=== PATIENT | female | born 1965 | race Caucasian/White ===

== ENCOUNTER 2018-04-16 15:33 | Inpatient (IN) | payer OTHER, SELFPAY | END 2018-04-20 15:10 | disposition home or self-care (01) | DRG 440 | PROVIDERS: Admitting Provider Internal Medicine; Emergency Provider Emergency Medicine; PCP Internal Medicine; Visit Provider Family Medicine | DX: K85.90 Acute pancreatitis without necrosis or infection, unspecified (principal); N30.20 Other chronic cystitis without hematuria; F41.9 Anxiety disorder, unspecified; E03.9 Hypothyroidism, unspecified; M06.9 Rheumatoid arthritis, unspecified; E78.5 Hyperlipidemia, unspecified; F10.10 Alcohol abuse, uncomplicated; I10 Essential (primary) hypertension | CPT/HCPCS: 36415; 74177; 76705; 80048; 80053; 80061; 81001; 83690; 83735; 84439; 84443; 84480; 84484; 85025; 85027; 85610; 85730; 87086; 93005; 96361; 96374; 96375; 99285; A9270; C9113; J0131; J0696; J2060; J2405; J3010; J7030; J7120; Q9967 ==

== ENCOUNTER 2019-05-17 09:16 | Outpatient (CLI) | payer OTHER, SELFPAY ==
--- NOTE | ~2019-05-17 | MM_ITS ---
EXAMINATION: MM screening elizabeth BI w eulalia HISTORY: Screening mammogram TECHNIQUE: Craniocaudal and mediolateral oblique 3-D tomosynthesis images were obtained and synthetic 2-D images were generated. CAD analysis was submitted and interpreted. COMPARISON: No prior mammogram is available for comparison at this institution. BREAST PARENCHYMAL COMPOSITION: There are scattered areas of fibroglandular density. FINDINGS: There is no evidence of suspicious mass, calcification, or architectural distortion to sugg est malignancy in either breast. There has been no suspicious interval change. IMPRESSION: 1. No mammographic evidence of malignancy. 2. Recommend routine screening mammography in one year. BI-RADS Category 1: Negative Reviewed, dictated and finalized at location A.
== END 2019-05-17 09:17 | disposition home or self-care (01) ==
PROVIDERS: PCP Internal Medicine; Visit Provider Internal Medicine
DX: Z12.31 Encounter for screening mammogram for malignant neoplasm of breast (principal)
CPT/HCPCS: 77063; 77067

== ENCOUNTER 2019-11-21 14:58 | Outpatient (CLI) | payer OTHER, SELFPAY ==
--- NOTE | ~2019-11-21 | XR_ITS ---
EXAMINATION: XR foot LT standing 2V INDICATION: Rheumatoid arthritis without rheumatoid factor TECHNIQUE: Two views of the left foot are obtained. COMPARISON: None available FINDINGS: There is no fracture, dislocation, or subluxation. The bones, soft tissues, and joint space s are normal. No erosions are identified. A plantar calcaneal enthesophyte is noted. IMPRESSION: 1. No acute osseous abnormality. Reviewed, dictated and finalized at location A.
--- NOTE | ~2019-11-21 | XR_ITS ---
EXAMINATION: XR hand BI arthritis min 3V DATE: 11/21/2019 15:38 INDICATION: Unspecified osteoarthritis, unspecified site TECHNIQUE: Posteroanterior, lateral, and oblique views of the left and of the right hands as well as a ballcatchers view of both hands were obtained. COMPARISON: None. FINDINGS: There is no fracture, dislocation, or subluxation. Subtle ulnar sided cortical erosions are seen at the bases of the left second, third, and fourth proximal phalanges. Subtle ulnar sided corti corrine erosions are also seen at the bases of the right third and fourth proximal phalanges. The soft ti ssues are unremarkable. IMPRESSION: 1. Subtle ulnar-sided erosions at the bases of the second through fourth left proximal phalanges and the third and fourth right proximal phalanges which can be seen in the setting of rheumatoid arthriti s. Reviewed, dictated and finalized at location A. IMPRESSION: 1. Subtle ulnar-sided erosions at the bases of the second through fourth left p roximal phalanges and the third and fourth right proximal phalanges which can b e seen in the setting of rheumatoid arthritis.
--- NOTE | ~2019-11-21 | XR_ITS ---
XR shoulder LT min 2V 11/21/2019 15:36 Indication: Rheumatoid arthritis Procedure: 5 views left shoulder Comparison: No prior studies for comparison. Findings: No fracture or traumatic malalignment. No significant joint space narrowing. No erosive tiana nges. No significant soft tissue abnormality. No radiopaque foreign bodies. Impression: 1: No significant bone or joint abnormality. Reviewed, dictated and finalized at location A. Impression: 1: No significant bone or joint abnormality.
--- NOTE | ~2019-11-21 | XR_ITS ---
EXAMINATION: XR foot RT standing 2V INDICATION: Rheumatoid arthritis without rheumatoid factor TECHNIQUE: Two views of the right foot are obtained. COMPARISON: None available FINDINGS: There is no fracture, dislocation, or subluxation. The bones, soft tissues, and joint space s are normal. No erosions are identified. A plantar calcaneal enthesophyte is noted. IMPRESSION: 1. No acute osseous abnormality. Reviewed, dictated and finalized at location A.
== END 2019-11-21 14:59 | disposition home or self-care (01) ==
PROVIDERS: PCP Internal Medicine; Visit Provider Internal Medicine
DX: M06.09 Rheumatoid arthritis without rheumatoid factor, multiple sites (principal); M19.90 Unspecified osteoarthritis, unspecified site
CPT/HCPCS: 73030; 73130; 73620

== ENCOUNTER 2020-03-18 12:41 | Outpatient (CLI) | payer OTHER, SELFPAY ==
--- NOTE | ~2020-03-18 | DEXA_ITS ---
Bone Density Report Name: Izabella Mendoza Age: 54 Sex: Female Ethnicity: White Date of : 1965 Indication: postmenopausal; prior fracture; cancer; asthma or emphysema; hysterectomy; Referring Provider: DAVID SYED Study: Bone densitometry was performed. Exam Date: March 18, 2020 Accession number: [id number] Bone Density: Region BMD T-score Z-score Classification AP Spine (L1-L4) 1.138 0.8 1.7 Normal Femoral Neck (Left) 0.891 0.4 1.3 Normal Total Hip (Left) 1.118 1.4 2.0 Normal Total Hip Bilateral Avg 1.072 1.0 1.6 Normal Femoral Neck (Right) 0.869 0.2 1.1 Normal Total Hip (Right) 1.025 0.7 1.2 Normal World Health Organization criteria for BMD impression classify patients as: Normal (T-score at or above -1.0), Osteopenia (T-score between -1.0 and -2.5), or Osteoporosis (T-score at or below -2.5). 10-year Fracture Risk: FRAX not reported because: All T-scores for Spine Total, Hip Total, Femoral Neck at or above -1.0 Clinical Information Provided by Patient: Has had a low trauma fracture Has used the following medications: Vitamin D, Calcium Has the following medical conditions: Asthma or Emphysema, Cancer, Hysterectomy Patient maximum height was 65 Menopause Age: 30 No regular weight bearing exercise Does not regularly consume dairy products Onset of menses at age 18 Number of children 2 Impression: The patient has normal bone mass. The patient has risk factors, including: previous fracture. Discussion: BONE DENSITY IS ABOVE THE MINIMUM DESIRABLE LEVEL AT ALL SKELETAL SITES TESTED. This patient?s bone mineral density is above the minimum desirable level (T-score -1.0 or better) at all sites measured. The patient should follow a healthful lifestyle (good nutrition with adequate calcium and vitamin D, and appropriate weight-bearing exercise). Follow-Up: Consider repeating this study in 5 years or sooner if there is some new clinical indication. Reported by: JENNIFER on 03/18/2020 1:01:00 PM. Reviewed, dictated and finalized at location A. [facility]
== END 2020-03-18 12:42 | disposition home or self-care (01) ==
PROVIDERS: PCP Internal Medicine; Visit Provider Internal Medicine
DX: M06.09 Rheumatoid arthritis without rheumatoid factor, multiple sites (principal); Z78.0 Asymptomatic menopausal state
CPT/HCPCS: 77080

== ENCOUNTER 2024-01-24 07:17 | Outpatient (CLI) | payer OTHER, SELFPAY ==
[2024-01-24 07:38] LABS: Hematocrit 39.3 % (37.0-47.0); Mean Corpuscular HGB Conc 33.1 g/dl (32-36); Mean Corpuscular Hemoglobin 30.4 pg (26-34); Mean Platelet Volume 11.9 fl (7.4-10.4); Platelet Count Result 116 k/mm3 (150-375); Red Blood Count 4.27 M/mm3 (4.2-5.4); Red Cell Distribution Width 12.9 % (11.5-14.5); White Blood Count 6.1 K/mm3 (4.5-10.0)
[2024-01-24 08:10] LABS: Alanine Aminotransferase 22 U/L (6-35); Albumin Level 3.8 g/dL (3.5-5.1); Alkaline Phosphatase 87 U/L (38-126); Amylase 73 U/L (30-110); Anion Gap 5 mmol/L (4-12); Aspartate Amino Transferase 26 U/L (14-36); Bilirubin,Total 0.7 mg/dL (0.2-1.3); Blood Urea Nitrogen 15 mg/dL (7-17); Calcium 8.9 mg/dL (8.4-10.2); Carbon Dioxide 29 mmol/L (22-30); Chloride 105 mmol/L (98-107); Estimated Glomerular Filt Rate > 60; Glucose 97 mg/dL (65-110); Lipase 144 U/L (23-300); Potassium 3.4 mmol/L (3.4-5.0); Sodium 139 mmol/L (137-145)
== END 2024-01-24 07:18 | disposition home or self-care (01) ==
PROVIDERS: PCP Internal Medicine; Visit Provider Nurse Practitioner Family
DX: R10.13 Epigastric pain (principal); R11.2 Nausea with vomiting, unspecified; R14.0 Abdominal distension (gaseous); K52.9 Noninfective gastroenteritis and colitis, unspecified
CPT/HCPCS: 36415; 80053; 82150; 82784; 83690; 85027; 86364

== ENCOUNTER 2024-02-04 08:28 | Outpatient (CLI) | payer OTHER, SELFPAY ==
--- NOTE | ~2024-02-04 | NM_ITS ---
EXAM: NM gastric emptying study DATE: 02/04/2024 13:12 INDICATION: Abdominal distention. Nausea and vomiting. TECHNIQUE: A gastric emptying study was performed using the methodology of Izzy DISLA, et al. J Nucl Med 2007; 48:568-572. The patient was given a meal consisting of 2 scrambled eggs labeled with 1 mCi Tc-99m sulfur colloid, 2 slices of toast, two packages of jam, and approximately 120 mL of water. Si multaneous anterior and posterior 1-min images of the abdomen were obtained with the patient supine a t multiple time points over a total period of 4 hours. The geometric mean of anterior and posterior v iews was determined, and the percentage retention was calculated for each time point. COMPARISON: CT abdomen and pelvis 04/16/2018 FINDINGS: The patient vomited before the 1 hour time point. Gastric retention of the radiotracer-labe led meal was 14%, 11%, and 3% at the 1-hour, 2-hour, and 4-hour time points, respectively. With this technique, apparent rapid gastric emptying is suggested by <30% gastric retention at 1 hour. Delayed gastric emptying is defined by gastric retention of >90% at 1 hour, >60% retention at 2 hours, or >10 % retention at 4 hours. IMPRESSION: 1. Nondiagnostic evaluation of gastric emptying due to vomiting before the 1 hour time point. Reviewed, dictated and finalized at location A. 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 Nondiagnostic evaluation of gastric emptying due to vomiting before the 1 ho ur time point.
== END 2024-02-04 08:29 | disposition home or self-care (01) ==
LOC: ANHIMG 08:29
PROVIDERS: PCP Internal Medicine; Visit Provider Nurse Practitioner Family
DX: R14.0 Abdominal distension (gaseous) (principal); R10.13 Epigastric pain; R11.2 Nausea with vomiting, unspecified
CPT/HCPCS: 78264; A9541

== ENCOUNTER 2024-02-09 07:41 | Outpatient (CLI) | payer OTHER, SELFPAY ==
--- NOTE | ~2024-02-09 | CT_ITS ---
Non-contrast CT scan of the Abdomen and Pelvis Clinical indication: Epigastric pain Technique: 2.5 mm axial scans were obtained through the abdomen and pelvis without intravenous or or al contrast. Dose reduction technique was used on this scan by utilizing automated exposure control a nd iterative reconstruction technique. The dose-length product (DLP) was 1432.46 mGy-cm. Findings: Images through the lung bases reveal no abnormalities. There are small bilateral nonobstructing renal stones. No ureteral stone or hydronephrosis on either side. The liver, spleen, pancreas, and left adrenal gland appear normal. Small low-density right adrenal no dule is compatible with adenoma. Cholecystectomy clips are present. There is no aortic aneurysm. There is no evidence of bowel obstruction. Images through the pelvis were performed. There is no evidence of ascites or lymphadenopathy. Urinary bladder unremarkable. Status post hysterectomy. No pelvic mass. Impression: Small bilateral nonobstructing renal stones. Small right adrenal adenoma. Reviewed, dictated and finalized at [facility]. 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 Small right adrenal adenoma.
== END 2024-02-09 07:42 | disposition home or self-care (01) ==
PROVIDERS: PCP Internal Medicine; Visit Provider Nurse Practitioner Family
DX: R10.13 Epigastric pain (principal); R11.2 Nausea with vomiting, unspecified; R14.0 Abdominal distension (gaseous); D35.01 Benign neoplasm of right adrenal gland; N20.0 Calculus of kidney
CPT/HCPCS: 74176

== ENCOUNTER 2024-02-21 09:07 | Outpatient (CLI) | payer OTHER, SELFPAY ==
[2024-02-21 09:32] LABS: Hematocrit 42.6 % (37.0-47.0); Hemoglobin 13.6 g/dL (12.0-15.0); Mean Corpuscular HGB Conc 31.9 g/dl (32-36); Mean Corpuscular Hemoglobin 29.1 pg (26-34); Mean Corpuscular Volume 91.2 fl (80-100); Mean Platelet Volume 11.2 fl (7.4-10.4); Platelet Count Result 147 k/mm3 (150-375); Red Blood Count 4.67 M/mm3 (4.2-5.4); Red Cell Distribution Width 12.7 % (11.5-14.5); White Blood Count 5.7 K/mm3 (4.5-10.0)
[2024-02-21 09:43] LABS: Alanine Aminotransferase 28 U/L (6-35); Albumin Level 3.9 g/dL (3.5-5.1); Alkaline Phosphatase 92 U/L (38-126); Anion Gap 0 mmol/L (4-12); Aspartate Amino Transferase 28 U/L (14-36); Bilirubin,Total 0.7 mg/dL (0.2-1.3); Blood Urea Nitrogen 20 mg/dL (7-17); Calcium 9.2 mg/dL (8.4-10.2); Carbon Dioxide 35 mmol/L (22-30); Chloride 104 mmol/L (98-107); Estimated Glomerular Filt Rate > 60; Glucose 105 mg/dL (65-110); Potassium 3.4 mmol/L (3.4-5.0); Sodium 139 mmol/L (137-145)
== END 2024-02-21 09:08 | disposition home or self-care (01) ==
LOC: ANHLAB 09:08
PROVIDERS: PCP Internal Medicine; Visit Provider Nurse Practitioner Family
DX: D69.6 Thrombocytopenia, unspecified (principal)
CPT/HCPCS: 36415; 80053; 85027

== ENCOUNTER 2024-08-03 08:48 | Outpatient (CLI) | payer OTHER, SELFPAY ==
--- OUTSIDE RECORDS SUMMARY | 2024-08-03 09:07 | XMS_ITS | Clinical Summary ---
Author Organization [facility] Address [address] [place] [address] Care Team Providers Care Furniture Sales Consultant Name Role Phone Navin Ibrahim MD Primary Care Provider [phone] Source Comments [facility],non-university hospital Affiliates and Associated Physician Practices is amultiple site organization consisting of ambulatory clinics and hospital sitesin [place], [place], [place] and [place]. This disclosure is being madepursuant to the Care Everywhere program and may not contain all information available regarding this patient. 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 Gender Identity Not on file Sexual Orientation Not on file Plan of Treatment Health Maintenance Due Date Last Done Comments COLOGUARD (AGES 45-75) - COL ON CA SCREENING 1965 COLON MONITORING 1965 COLONOSCOPY - COLON CA SCREENING 1967 CT COLONOGRAPHY - COLON CA SCREENING 1965 Colorectal Cancer Screening 1965 FIT - COLON CA SCREENING 1967 FLEX SIG - COLON CA SCREENING 1965 LIPID TESTING 1965 MAMMOGRAM 1965 HIV SCREENING 09/29/1982 HEPATITIS C SCREENING 09/25/1985 DTAP/TDAP/TD VACCINES (1 - Tdap) 09/29/1986 HEPATITIS B VACCINE (1 of 3 - 19+ 3-dose series) 09/29/1986 PNEUMOCOCCAL VACCINE 50+ (1 of 1 - PCV) 09/29/2017 ZOSTER VACCINE (1 of 2) 09/29/2017 COVID-19 VACCINE (1 - 2024-2 5 season) 2023 DEPRESSION SCREENING 03/01/2024 INFLUENZA VACCINE (Season Ended) 2024 HIB VACCINE Aged Out No longer eligi ble based on patient's age to complete this topic HPV VACCINE Aged Out No longer eligi ble based on patient's age to complete this topic MENINGOCOCCAL (Group B) VACC INE SHARED DECISION-MAKING Aged Out No longer eligibl e based on patient's age to complete this topic MENINGOCOCCAL GROUPS A/C/Y/W VACCINE Aged Out No longer eligible b ased on patient's age to complete this topic Insurance Care Teams Furniture Sales Consultant Relationship Specialty Start Date End Date Navin Ibrahim MD [address] [facility] [address] [place] [address] PCP - General Internal Medicine 11/12/14
--- OUTSIDE RECORDS SUMMARY | 2024-08-03 09:07 | XMS_ITS | Continuity of Care Document ---
Author Organization [facility] Address [address] [place] [address] [place] [address] Phone Care Team Providers Care Gold Letterer Name Role Phone Marko Rosen Unavailable Unavailable Procedures Procedure Date Visual Field Examination(s) Eye Exam, New Patient Refraction Advance Directives Directive Yes / No Effective Date File Name No Information Encounters Encounter Description Practice Location Reason(s) For Visit Diagnoses Date Provider Providers Copied on Encounter [facility], [address] [place] [address] [address], [place], [place], [id number], tel:[phone] [facility] No Information Andi-0 3-201 0 Silas Lovehil. [address] [place] [address], [facility], [place]. tel:[phone] Referring Provider: Marko west, [address] [place] [address], [facility]. tel:[phone] [facility], [address] [place] [address] [address], [place], [place], [id number], tel:[phone] [facility] No Information Andi-0 1-201 0 Silas Marko. [address] [place] [address], [facility], [place]. tel:[phone] Referring Provider: Eugenio Moody, [facility] [address], [place], [place], [facility]. tel:[phone] Family History Family Member Type Diagnosis Age At Onset No Information Payers Payer name Insurance type Covered constitution party ID Mirna preciado(s) [facility] CI [id number] Social History Type Description Quantity Date Captured Comments Sex Female Smoking Status No Information Chief Complaint And Reason For Visit No Information Reason For Referral Reason For Referral No Information History Of Present Illness Encounter Date Complaint History Of Prese nt Illness No Information Functional Status Date Functional Assessmen t No Information Instructions Date Instruction Additional Infor mation No Information Assessments Type Assessment Date No Information Patient Care Teams Name Effective Dates (start - stop) Status Members No Information
--- OUTSIDE RECORDS SUMMARY | 2024-08-03 09:08 | XMS_ITS | Referral Summary ---
Author Organization [facility] Address [address] [place] [address] Care Team Providers Care Surface Water Technician Name Role Phone Navin Ibrahim MD Primary Care Provider Cesar Dumont MD Unavailable Allergies Active Allergy Reactions Criticality Noted Date Comments Acetaminophen Bupropion Other (See comments),Palpitations Medium Reaction: TACHYCARDIA, , Reaction: Heart Palpitations, Hydrocodone Hydroxychloroquine Nausea only,Vomiting Reaction: nausea, vomiting, Medications lisinopril-hyd roCHLOROthiazi de (PRINZIDE,ZEST ORETIC) 10-12.5 mg per tablet take 1 tablet by oral route every day 30 0 4 Active fluticasone (FLONASE) 50 mcg/actuation nasal spray spray 2 spray by intranasal route 2 times every day in each nostril 30 spray 0 4 Active oxyCODONE (ROXICODONE) 10 mg tabletIndicati ons:Pain 5 mg. 0 8 Active lamoTRIgine (LaMICtal) 100 mg tablet Take 100 mg by mouth daily. Active levothyroxine sodium (TIROSINT) 112 mcg capsule Take 112 mcg by mouth daily. Active Orencia ClickJect 125 mg/mL auto-injector INJECT 125MG SUBCUTANEOUSLY WEEKLY 4 mL 1 0 Active Active Problems Problem Noted Date Diagnosed Date Pain of right heel 08/08/2018 Assessment & Plan (06/20/2019 1:19 PM CDT): Patient notes pain in her right heel that radiates into her ankle with weight-bearing. Pcp gave medrol dose jordon for plantar fasciitis but patient denied benefit. Patient defered x-ray and referral to podiatry at previous visit. Notes improvement with supportive footwear. Assessment & Plan (01/30/2019 12:16 PM SHEET METAL HELPER): Patient notes pain in her right heel that radiates into her ankle with weight-bearing. Pcp gave medrol dose jordon for plantar fasciitis but patient denied benefit. Patient defered x-ray and referral to podiatry at previous visit. Notes improvement with supportive footwear. Assessment & Plan (11/07/2018 2:45 PM CDT): Patient notes pain in her right heel that radiates into her ankle with weight-bearing. Pcp gave medrol dose jordon for plantar fasciitis but patient denied benefit. Patient defers x-ray at this time. Defers referral to podiatry. Assessment & Plan (08/08/2018 10:48 AM CDT): Patient notes pain in her right heel that radiates into her ankle with weight-bearing. Patient defers x-ray at this time and would like to discuss it further with her pcp. Cervical radiculopathy 08/08/2018 Overview (06/20/2019): Xray cervical spine (01/30/19): mild degenerative endplate OA, mild disc space narrowing C6-7. L-spine (01/30/19): normal Assessment & Plan (06/20/2019 1:43 PM CDT): Notes right sided neck pain for the past 6 months that radiates into her right shoulder with neck rotation. Denies any injury. Given flexeril x7 days per pcp with some benefit. C-spine x-ray (01/30/19) revealed mild degenerative OA with mild disc space narrowing at C6-7. Notes some improvement since last visit. Could always consider PT in the future. Assessment & Plan (01/30/2019 12:17 PM SHEET METAL HELPER): Notes right sided neck pain for the past 6 months that radiates into her right shoulder with neck rotation. Denies any injury. Given flexeril x7 days per pcp with some benefit. Will get x-ray today. May need to consider PT, however patient defers at this time. Assessment & Plan (11/07/2018 2:44 PM CDT): Notes right sided neck pain for the past 3 months that radiates into her right shoulder with neck rotation. Denies any injury. Likely that she has a pinched nerve. Patient defers x-ray or PT at this time. Given flexeril x7 days per pcp with some benefit. Will continue to monitor. Assessment & Plan (08/08/2018 10:51 AM CDT): Notes right sided neck pain for the past 2 weeks that radiates into her right shoulder with neck rotation. Denies any injury. Likely that she has a pinched nerve. Patient defers x-ray or PT at this time. Will continue to monitor. medical terminologist current use of therapeutic drug 2018 Overview (06/22/2019): Quantiferon negative: 05/2019 Hepatitis negative: 06/2015 CXR negative: 04/2016 Assessment & Plan (06/20/2019 1:43 PM CDT): Quantiferon negative: 07/2018, recheck today. Hepatitis negative: 06/2015 CXR negative: 04/2016 leflunomide no benefit SSZ caused depression/SI MTX offered no benefit. Humira and enbrel offered no benefit and had injection site reactions. HCQ caused N/V. AZA exacerbated pancreatitis Hx COPD - 1 flare in last 3 years and symptoms better since stop smoking. Will follow closely on orencia Assessment & Plan (01/30/2019 12:16 PM SHEET METAL HELPER): Quantiferon negative: 07/2018 Hepatitis negative: 06/2015 CXR negative: 04/2016 leflunomide no benefit SSZ caused depression/SI MTX offered no benefit. Humira and enbrel offered no benefit and had injection site reactions. HCQ caused N/V. AZA exacerbated pancreatitis Hx COPD - 1 flare in last 3 years and symptoms better since stop smoking. Will follow closely on orencia Assessment & Plan (11/07/2018 2:49 PM CDT): Quantiferon negative: 07/2018 Hepatitis negative: 06/2015 CXR negative: 04/2016 leflunomide no benefit SSZ caused depression/SI MTX offered no benefit. Humira and enbrel offered no benefit and had injection site reactions. HCQ caused N/V. AZA exacerbated pancreatitis Hx COPD - 1 flare in last 3 years and symptoms better since stop smoking. Will follow closely on orencia Assessment & Plan (08/08/2018 10:35 AM CDT): Quantiferon negative: 06/2017, recheck today. Hepatitis negative: 06/2015 CXR negative: 04/2016 Recurrent UTI 04/11/2018 Assessment & Plan (06/20/2019 1:42 PM CDT): History of chronic recurrent UTIs, however unlikely that this was caused by orenica. Could always consider referral to urogenital specialist if symptoms recur. Assessment & Plan (01/30/2019 12:15 PM SHEET METAL HELPER): History of chronic recurrent UTIs, however unlikely that this was caused by orenica. Denies any urinary symptoms today. Could always consider referral to urogenital specialist if symptoms recur. Assessment & Plan (11/07/2018 2:45 PM CDT): History of chronic recurrent UTIs, however unlikely that this was caused by orenica. Denies any urinary symptoms today. Could always consider referral to urogenital specialist if symptoms recur. Assessment & Plan (08/08/2018 10:37 AM CDT): History of chronic recurrent UTIs, however unlikely that this was caused by orenica. Denies any urinary symptoms today. Could always consider referral to urogenital specialist if symptoms recur. Assessment & Plan (05/09/2018 10:42 AM CDT): History of chronic recurrent UTIs. Denies any urinary symptoms today. Discussed having patient see a urologist to evaluate for any urogenital abnormalities that could be causing her recurrent UTIs, however patient defers at this time. Assessment & Plan (04/11/2018 11:33 AM SHEET METAL HELPER): Patient reports chronic recurrent UTIs despite multiple rounds of antibiotics. This most recent UTI has required 3 different antibiotics which the patient just finished. Denies any urinary symptoms today. Will order a UA to further evaluate for UTI and if negative will have patient restart her Orencia 125mg SQ weekly. Discussed having patient see a urologist to evaluate for any urogenital abnormalities that could be causing her recurrent UTIs, however patient defers at this time. Rheumatoid arthritis of [facility] sites with negative rheumatoid factor 09/24/2016 Overview (05/09/2018): Diag per Dr. Shukla with pain and swelling of hands Xray hands reveal degenertive changes. Xray feet reveal calcaneal spurs. US R hand and wrist revealed mild inflammatory changes (07/2015). Vectra 39 (04/2015) Vectra 46 (09/2016) Symptoms mainly over bilat hands (MCP, PIP joints) with R>L. Had felt great on orencia although had been stopped due to UTIs which have since resolved. Is noted UTIs really did not improve off orencia until she was treated with appropriate antibiotic. Off orencia, pt having worsened pain, swelling stiffness over hands. orencia 125 mg subcut weekly leflunomide no benefit SSZ caused depression/SI MTX offered no benefit. Humira and enbrel offered no benefit and had injection site reactions. HCQ caused N/V. AZA exacerbated pancreatitis Has COPD although only 1 flare in last 3 years and symptoms better since stop smoking. Will follow closely on orencia Cannot consider RA study - not on stable oral DMARD Assessment & Plan (06/20/2019 1:41 PM CDT): Moderate cdai. No obvious synovitis with few tender joints noted on exam today. Notes acute onset of right medial epicondyle pain. Suggest elbow strap as symptoms are usually self-limiting. Continue Orencia 125mg SQ weekly. Routine labs today. Follow up in 3 months. Sooner if needed. Assessment & Plan (01/30/2019 12:15 PM SHEET METAL HELPER): Moderate cdai. No obvious synovitis with multiple tender joints noted on exam today. Biggest complaint is low back and neck pain. Will get x-rays of these joints and may consider PT. Continue Orencia 125mg SQ weekly. Routine labs today. Follow up in 3 months. Sooner if needed. Assessment & Plan (11/07/2018 2:46 PM CDT): High cdai. Notes recent increase in joint pain. Switched to orencia clickjet from the syringe and notes it is easier to give herself. Several swollen and tender joints noted on exam today. Continue Orencia 125mg SQ weekly. Routine labs today. Follow up in 3 months. Sooner if needed. Assessment & Plan (08/08/2018 10:47 AM CDT): Moderate cdai. No obvious synovitis, however some tender joints on peripheral exam today. Feels well with orencia and has been able to continue exercising regularly. Reports difficulty giving self-injections with orencia syringes, so will request the auto-injector pen. Will continue orencia 125mg SQ weekly. Routine labs today. Follow up in 3 months. Sooner if needed. Assessment & Plan (05/09/2018 10:41 AM CDT): Moderate cdai. Stopped azathioprine after last visit due to exacerbation of pancreatitis. Restarted orencia 2 weeks ago. Notes improvement of joints since last visit and has started exercising routinely which has improved her stability and she is no longer using a walker. Started using CBD oil. Swelling with tenderness mostly in the right hand today. Has recently been having pain in the right thumb and is tender along the first compartment suggesting a tendonitis. Continue orencia 125mg SQ weekly. Routine labs today. Follow up in 3 months. Sooner if needed. Assessment & Plan (04/11/2018 11:24 AM SHEET METAL HELPER): High cdai. Multiple swollen and tender joints on exam today. Started azathioprine 50mg daily last visit and noted some improvement of right wrist pain and swelling. Also switched to using a walker from a cane which has also helped her wrist pain. Has been on orencia SQ for the past month due to recurrent UTIs. Has finished most recent course of antibiotics. Continue azathioprine 50mg daily. Will order routine labs as well as a UA to evaluate for UTI. If UTI cleared, then can restart orencia SQ. Previous LFTs were significantly elevated, will recheck today and if normalized will increase azathioprine 50mg BID. Discussed with patient avoiding tylenol and alcohol at this time as they can affect liver function. Follow up in 4 weeks. Sooner if needed. Assessment & Plan (03/10/2018 9:48 AM SHEET METAL HELPER): She has been having increased pain and stiffness in her hands and wrists with the right greater than left. She had been off her Orencia for 3 weeks last month due to a UTI and has restarted this and has had 2 doses since restarting. She does state that being off the orencia has worsen her joint complaints although she has been having issues prior to this as well. She does have some synovitis and tenderness over the wrists as well as tenderness throughout the right MCP and PIP joints. She does feel the orencia has helped more than anything although her disease activity still remains high. Will initiate azathioprine 50 mg daily. Continue Orencia 125 mg subcutaneous weekly. Obtain labs as below. Follow-up in 4 months. Assessment & Plan (12/06/2017 10:46 AM CDT): She has been having increased pain and swelling in her hands, wrists, feet, and ankles as she has been off the orencia for the last 4 weeks due to a flare-up of her diverticulitis which has essentially resolved per her report. She does have some synovitis and tenderness over several joints on exam today. Will resume Orencia 125 mg subcutaneous weekly if her labs are okay and her white blood cell count is not significantly elevated. Due to her disease burden will administer triamcinolone 100 mg IM injection today. Will obtain labs as below. Follow-up in 3 months. Assessment & Plan (09/07/2017 11:17 AM CDT): She is doing better since resuming the Orencia which helps greatly for 4 days after dose although she begins to have increased pain in her hands and knees for the remaining days leading up to her next dose. She is on the leflunomide although she does not feel this is offering any benefit and wants to discontinue this. She does feel she is doing well enough with the orencia despite it not being as effective the entire week. She has no active synovitis on exam although does have some tenderness over several MCP and PIP joints. I did discuss with her switching the orencia to another biologic versus enrolling her in a drug trial for rheumatoid arthritis. She wants to defer switching the orencia at this time as she feels it is helping well enough although if symptoms progress she reports she may be interested in a drug trial. Will continue Orencia 125 mg subcutaneous weekly. Will discontinue the leflunomide at her request. If symptoms progress off the leflunomide will restart this. Recent labs were unremarkable. Follow-up in 3 months. Assessment & Plan (07/05/2017 11:10 AM CDT): Had been doing well although stopped her orencia and leflunomide >2 weeks ago due to diverticulitis which has since resolved and she is s/p antibiotics. Since off meds has had increased pain in hands, feet and legs weak requiring use of cane. She feels she does well enough on orencia and leflunomide. Pt did restart leflunomide 1 week ago but yet to restart orencia. Has no synovitis on exam and tender in several joints. Will restart orencia 125 mg subcut weekly, leflunomide 20 mg daily. Labs as below. f/u 2 months. Assessment & Plan (05/03/2017 12:31 PM SHEET METAL HELPER): Has been off orencia and leflunomide >2 months due to recurrent sinus infections. Also unable to tolerate SSZ as prescribed last visit due to depression with SI . Does have synovitis and quite a bit of tenderness over several joints on exam today. Pt reports recently completing antibiotics for sinus infection and states the recurrence of these has not changed off orencia. I suspect she would likely do ok restarting the orencia as her RA is poorly controlled now and she still is having sinus infections despite off meds. She does report her joints were much better on the orencia and I believe the benefit outweighs the risk as she is still getting sinus infections. Will have her restart orencia 125 mg subcut weekly, leflunomide 20 mg daily. Due to her disease burden will give triamcinolone 100 mg IM today. Labs as below. Pt may benefit from ENT referral. F/u 2 months. Assessment & Plan (01/25/2017 10:29 AM SHEET METAL HELPER): Still with synovitis over pip joints and pain and stiffness over mcp, pip joints. Pt does feel the orencia works well although is less effective ~3-4 days after her injection. Otherwise is on leflunomide 20 mg daily. Recent Vectra 46 revealing high disease activity. Will add SSZ 500 mg bid for additional managament of her RA . Cont orencia 125 mg subcut weekly, leflunomide 20 mg daily. Labs as below. F/u 1 month. Assessment & Plan (10/23/2016 2:40 PM CDT): CDAI 34: High disease activity Had been doing fairly well with orencia and leflunomide although pt has been off orencia for last 4 weeks due to recurrent sinus infection. Is feeling better now however in regards to this. Has increased pain mainly in knees, ankles as well as hands, wrists. Has synovitis over MCP, PIP joints, wrists, ankles on exam today. Will obtain labs as below including Vectra Da. Restart orencia 125 mg subcut weekly. Cont leflunomide 20 mg daily. F/u 3 months Primary osteoarthritis involving multiple joints 09/24/2016 Overview (06/07/2019): Worse in knees and spine. Pt follows with pain management. Trying to get medical marijuana card Xray cervical spine (01/30/19): mild degenerative endplate OA, mild disc space narrowing C6-7. L-spine (01/30/19): normal Assessment & Plan (06/20/2019 1:19 PM CDT): Chronic pain in bilateral knees as well as the lumbar spine. Follows with pain management. Has been routinely exercising and improving her stability and no longer requires a walker. Patient has deferred physical therapy in the past. Encouraged continuing routine exercise. Assessment & Plan (01/30/2019 12:16 PM SHEET METAL HELPER): Chronic pain in bilateral knees as well as the lumbar spine. Follows with pain management. Has been routinely exercising and improving her stability and no longer requires a walker. Patient has deferred physical therapy in the past. Encouraged continuing routine exercise. Assessment & Plan (11/07/2018 2:45 PM CDT): Chronic pain in bilateral knees as well as the lumbar spine. Follows with pain management. Has been routinely exercising and improving her stability and no longer requires a walker. Patient has deferred physical therapy in the past. Encouraged continuing routine exercise. Assessment & Plan (08/08/2018 10:35 AM CDT): Chronic pain in bilateral knees as well as the lumbar spine. Follows with pain management. Has been routinely exercising and improving her stability and no longer requires a walker. Patient has deferred physical therapy in the past. Encouraged continuing routine exercise. Assessment & Plan (05/09/2018 10:39 AM CDT): Chronic pain in bilateral knees as well as the lumbar spine. Has been routinely exercising and improving her stability and no longer requires a walker. Patient has deferred physical therapy in the past. Encouraged continuing routine exercise. Assessment & Plan (04/11/2018 11:28 AM SHEET METAL HELPER): Chronic pain in bilateral knees as well as lumbar spine. Previously reported unsteadiness while walking with cane, however has since switched to using a walker which has improved her right wrist pain and swelling also. Patient has deferred physical therapy in the past; however if symptoms worsen, may reconsider formal physical therapy. Continue to follow-up with pain management. Assessment & Plan (03/10/2018 9:51 AM SHEET METAL HELPER): She is having ongoing pain in the bilateral knees with the right worse than left as well as throughout her lumbar spine. She also reports unsteadiness of her feet which she has had some falls and had been walking with a cane although this was bothering her right wrist so she had stopped this. She does follow with Pain Management and is trying to get medicinal marijuana. She was also recently placed on a TENS unit for her spinal complaints. I did discuss with her referral to physical therapy for her unsteadiness as well as her knee and back pain although she wants to defer as she does state that she is to start exercising at a local gym with a certified personal trainer in the near future. If her symptoms progress she may reconsider formal physical therapy. Continue to follow-up Pain Management. Assessment & Plan (12/06/2017 10:47 AM CDT): This mainly involves the bilateral knees and her low back. Symptoms are worse with activity. This remains stable per her report and she does follow with Pain Management. Assessment & Plan (09/07/2017 11:18 AM CDT): Symptoms are worse in the bilateral knees and her spine. She is following with pain management who is trying to taper off the oxycodone in anticipation of her getting her medical marijuana card. Assessment & Plan (07/05/2017 9:42 AM CDT): Mainly in knees and spine. Follows with pain management. Symptoms stable. Assessment & Plan (05/03/2017 11:53 AM SHEET METAL HELPER): Symptoms worse in spine and knees. Follows with pain management. Assessment & Plan (01/25/2017 10:26 AM SHEET METAL HELPER): Symptoms worse in bilat knees and spine. Follows with pain management. Assessment & Plan (10/23/2016 2:39 PM CDT): Mainly in bilat knees and L-spine. Follows with pain management. Is trying to get medical marijuana card. Sleep apnea 07/15/2013 Overview (06/05/2016): OT [facility] SLEEP APNEA Asthma 07/15/2013 Overview (06/05/2016): ASTHMA NOS Disorder of intervertebral disc 10/17/2012 Overview (06/05/2016): Lumbar disc disease Fibrositis 05/13/2012 Overview (06/04/2016): Fibromyalgia Adiposity 05/13/2012 Overview (06/04/2016): Obesity Chronic obstructive pulmonary disease 05/13/2012 Overview (06/05/2016): COPD (chronic obstructive pulmonary disease) Hypothyroidism 03/01/2009 Overview (06/04/2016): HYPOTHYROIDISM NOS Myopathy 03/01/2009 Overview (06/05/2016): MYALGIA AND MYOSITIS NOS Social History Tobacco Use Types Packs/Day Years Used Date Smoking Tobacco: Former Smokeless Tobacco: Never Comments:Smoking History Pac ks/day: 1.5 Packs Alcohol Use Standard Drinks/Week Comments Yes 0 (1 standard drink = 0.6 oz pur e alcohol) Comments Unknown Sex and Gender Information Value Date Recorded Sex Assigned at Not on file Legal Sex Female 8:08 AM SHEET METAL HELPER Gender Identity Not on file Sexual Orientation Not on file Last Filed Vital Signs Vital Sign Reading Time Taken Comments Blood Pressure 138/82 06/20/2019 1:39 PM CDT Pulse 78 01/30/2019 10:08 AM SHEET METAL HELPER Temperature 36.6 C (97.8 F) 06/20/2019 1:39 PM CDT Respiratory Rate - - Oxygen Saturation - - Inhaled Oxygen Concentration - - Weight 103.9 kg (229 lb) 06/20/2019 1:39 PM CDT Height 165.1 cm (5' 5) 01/30/2019 10:08 AM SHEET METAL HELPER Body Mass Index 38.11 01/30/2019 10:08 AM SHEET METAL HELPER Plan of Treatment Not on file Insurance CHO[employer] PLUS Care Teams Surface Water Technician Relationship Specialty Start Date End Date Navin Ibrahim MD PCP - General 05/29/16 Cesar Dumont MD [address] [address] Rheumatology 01/25/17
--- OUTSIDE RECORDS SUMMARY | 2024-08-03 09:08 | XMS_ITS | CONTINUITY OF CARE DOCUMENT ---
Author Name [email or web address] Address Unknown Organization [facility] Address [address] [address] [place] [address] Phone [phone] Care Team Providers Care Functional Skills Tutor Name Role Phone Stephanie Diaz MD Unavailable Navin Ibrahim MD Unavailable [phone] Navin Ibrahim MD Unavailable [phone] INSURANCE PROVIDERS Payer name Policy type / Coverage type [employer] party ID [facility] [employer] [id number]
--- OUTSIDE RECORDS SUMMARY | 2024-08-03 09:08 | XMS_ITS | Encounter Summary ---
Author Organization [facility] Address [address] [place] [address] Phone Care Team Providers Care Public Area Attendant Name Role Phone Navin Ibrahim MD Primary Care Provider [phone] Cesar Dumont MD Unavailable Encounter Details Date Type Department Care Team (Late st Contact Info) Description 05/20/2017 Orders Only [facility] ProviderKentrell MD [address] [phone] Social History Tobacco Use Types Packs/Day Years Used Date Smoking Tobacco: Former Smokeless Tobacco: Never Comments:Smoking History Pac ks/day: 1.5 Packs Alcohol Use Standard Drinks/Week Comments Yes 0 (1 standard drink = 0.6 oz pur e alcohol) Comments Unknown Sex and Gender Information Value Date Recorded Sex Assigned at Not on file 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 Historical Provider LAB BLOOD ORDERABLES Starr l Result documented in this encounter Visit Diagnoses Not on filedocumented in this encounter Additional Health Concerns Infection Onset Date Last Indicated Resolved Time Tuberculosis Comment:Germ watcher auto flagging. Specimen: BLOOD Site: 03/30/2016 03/30/2016 09/07/2023 10:06 P M CDT documented as of this encounter Care Teams Public Area Attendant Relationship Specialty Start Date End Date Navin Ibrahim MD PCP - General 05/29/16 Cesar Dumont MD [address] [address] Rheumatology 01/25/17 documented as of this encounter
--- OUTSIDE RECORDS SUMMARY | 2024-08-03 09:08 | XMS_ITS | Encounter Summary ---
Author Organization [facility] Address [address] [place] [address] Phone Care Team Providers Care Elementary Math Tutor Name Role Phone Navin Ibrahim MD Primary Care Provider [phone] Cesar Dumont MD Unavailable [phone] Encounter Details Date Type Department Care Team (Late st Contact Info) Description 07/05/2017 Orders Only [facility] ProviderKentrell MD [address] [phone] Social History Tobacco Use Types Packs/Day Years Used Date Smoking Tobacco: Former Smokeless Tobacco: Never Comments:Smoking History Pac ks/day: 1.5 Packs Alcohol Use Standard Drinks/Week Comments Yes 0 (1 standard drink = 0.6 oz pur e alcohol) Comments Unknown Sex and Gender Information Value Date Recorded Sex Assigned at Not on file 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 Historical Provider LAB BLOOD ORDERABLES Starr l Result documented in this encounter Visit Diagnoses Not on filedocumented in this encounter Additional Health Concerns Infection Onset Date Last Indicated Resolved Time Tuberculosis Comment:Germ watcher auto flagging. Specimen: BLOOD Site: 03/30/2016 03/30/2016 09/07/2023 10:06 P M CDT documented as of this encounter Care Teams Elementary Math Tutor Relationship Specialty Start Date End Date Navin Ibrahim MD PCP - General 05/29/16 Cesar Dumont MD [address] [address] Rheumatology 01/25/17 documented as of this encounter
--- OUTSIDE RECORDS SUMMARY | 2024-08-03 09:08 | XMS_ITS | Data Portability ---
Author Organization [facility] [employer], Main Office Address [address] [place] [address] Care Team Providers Care Process Safety Management Engineer Name Role Phone EKTA NAVARRO Primary Care Provider EKTA NAVARRO Referring Provider Assessment No assessment recorded. Plan of Treatment Reminders Order Date Submit Date Provider Last Modified By Organization Details Last Modified Time Details Appointments Any 15 2024 01:30P M Ekta Navarro MD Not available Not available Not available Lab TSH, serum or plasma 2024 025 [email or web address] [facility], [facility], [address], [place], [address], 08/02/2024 14:08:29 urinalysi s, dipstick 2023 024 [email or web address] [facility] [address], [address] [place], [address], 02/07/2024 13:38:[address] referral - increasin g tremors- seeing psych to discuss meds as well. 2024 025 [email or web address] [facility] [place] Prabhakar Rutledge, [place], [address], 08/02/2024 11:34:36 dermatolo gist referral - Please call patient to schedule. 2024 025 [email or web address] [facility], [address] [place] [address], [place], [address], 05/22/2024 11:26:00 Procedures None recorded. Surgeries None recorded. Imaging None recorded. Medication Orders Cipro 250 mg tablet 2023 024 [email or web address] [facility]/Pharmacy #[id number], [address], [place], [address], 02/28/2024 13:57:32 amlodipin e 10 mg tablet 2023 024 JOIE [facility]/Pharmacy #[id number], [address], [place], [address], 02/03/2024 17:00:51 Patient TargetsNo targets recorded. Patient Instructions Encounter Date Encounter Id Patient Instructions Last Modified By Organization Details Last Modified Time 08/02/2024 [id number] Call Psych to discuss medications and likely side effects. Neurology consult sent at this time. [email or web address] Not available 08/02/2024 11:25:47 Discussed medications side effects vs. Neurological symptoms. will call with lab results. Please have RA send updated recent labs to our office. 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 Referring Physician: Ekta Navarro, Internal Medicine, Encounter Date: 03/13/2024 Neurologist Referral for Benny mor increasing tremors- seeing psych to discuss meds as well. Referring Physician: Mariama Mauricio, Internal Medicine, Encounter Date: 08/02/2024 Results Created Date Observation Date Name Description Value Unit Range Abnormal Flag Note LastModifiedBy Organization Detail LastModifiedTime 12/06/1912/06/2023 urina lysis , dipst ick Leukocytes (reference range: negative sonia/ l) Small Not Available [facility] [address] [place], [address], 12/06/2023 16:49:45 12/06/1912/06/2023 urina lysis , dipst ick Nitrite (reference rage: negative mg/dl) negati ve Not Available [facility] [address] [place], [address], 12/06/2023 16:49:45 12/06/1912/06/2023 urina lysis , dipst ick Urobilinogen (reference range: 0.2-1 mg/dl) 0.2 Not Available [facility] [address] [place], [address], 12/06/2023 16:49:45 12/06/1912/06/2023 urina lysis , dipst ick Protein (reference range: negative mg/dl) Trace Not Available [facility] [address] [place], [address], 12/06/2023 16:49:45 12/06/1912/06/2023 urina lysis , dipst ick pH (reference range: 5-7) 5.5 Not Available [facility] [address] [place], [address], 12/06/2023 16:49:45 12/06/19 24 12/06/2023 urina lysis , dipst ick Blood (reference range: negative Vic/ l) Small Not Available [facility] [address] [place], [address], 12/06/2023 16:49:45 12/06/19 24 12/06/2023 urina lysis , dipst ick Specific [facility] (reference range: 1.005-1.030) 1.015 Not Available [facility] [address] [place], [address], 12/06/2023 16:49:45 12/06/19 24 12/06/2023 urina lysis , dipst ick Ketone (reference range: negative mg/dl) Negati ve Not Available [facility] [address] [place], [address], 12/06/2023 16:49:45 12/06/19 24 12/06/2023 urina lysis , dipst ick Bilirubin (reference range: negative mg/dl) Negati ve Not Available [facility] [address] [place], [address], 12/06/2023 16:49:45 12/06/1912/06/2023 urina lysis , dipst ick Glucose (reference range: negative mg/dl) Negati ve Not Available [facility] [address] [place], [address], 12/06/2023 16:49:45 12/06/19 24 12/06/2023 urina lysis , dipst ick Appearance Cloudy Not Available [facility] [address] [place], [address], 12/06/2023 16:49:45 12/06/19 24 12/06/2023 urina lysis , dipst ick Color Pale Yellow Not Available [facility] [address] [place], [address], 12/06/2023 16:49:45 12/20/19 24 12/20/2023 URINA LYSIS COMPL ETE/I RIS W/RFX color YELLOW Not Available [facility] (Lab) [address] [place], [address], 12/20/2023 19:18:45 12/20/19 24 12/20/2023 URINA LYSIS COMPL ETE/I RIS W/RFX appear EXTRA TURBID abnormal Not Available [facility] (Lab) [address] [place], [address], 12/20/2023 19:18:45 12/20/1912/20/2023 URINA LYSIS COMPL ETE/I RIS W/RFX specific gravity 1.021 1.001- 1.030 Not Available [facility] (Lab) [address] [place], [address], 12/20/2023 19:18:45 12/20/1912/20/2023 URINA LYSIS COMPL ETE/I RIS W/RFX pH 5.5 pH_un its 5.0-9. 0 Not Available [facility] (Lab) [address] [place], [address], 12/20/2023 19:18:45 12/20/1912/20/2023 URINA LYSIS COMPL ETE/I RIS W/RFX leukocytes >/=500 sonia/u L negati ve- abnormal Not Available [facility] (Lab) [address] [place], [address], 12/20/2023 19:18:45 12/20/1912/20/2023 URINA LYSIS COMPL ETE/I RIS W/RFX nitrite NEGATI VE negati ve- Not Available [facility] (Lab) [address] [place], [address], 12/20/2023 19:18:45 12/20/1912/20/2023 URINA LYSIS COMPL ETE/I RIS W/RFX protein 70 mg/dL negati ve- abnormal Not Available [facility] (Lab) [address] [place], [address], 12/20/2023 19:18:45 12/20/1912/20/2023 URINA LYSIS COMPL ETE/I RIS W/RFX glucose NORMAL mg/dL normal - Not Available [facility] (Lab) [address] [place], [address], 12/20/2023 19:18:45 12/20/1912/20/2023 URINA LYSIS COMPL ETE/I RIS W/RFX ketones NEGATI VE mg/dL negati ve- Not Available [facility] (Lab) [address] [place], [address], 12/20/2023 19:18:45 12/20/1912/20/2023 URINA LYSIS COMPL ETE/I RIS W/RFX urobilinogen NORMAL mg/dL normal - Not Available [facility] (Lab) [address] [place], [address], 12/20/2023 19:18:45 12/20/1912/20/2023 URINA LYSIS COMPL ETE/I RIS W/RFX bilirubin NEGATI VE mg/dL negati ve- Not Available [facility] (Lab) [address] [place], [address], 12/20/2023 19:18:45 12/20/1912/20/2023 URINA LYSIS COMPL ETE/I RIS W/RFX blood 0.2 mg/dL negati ve- abnormal Not Available [facility] (Lab) [address] [place], [address], 12/20/2023 19:18:45 12/20/1912/20/2023 URINA LYSIS COMPL ETE/I RIS W/RFX white blood cells 61-100 /i??h pfi?? 0-8 abnormal Not Available [facility] (Lab) [address] [place], [address], 12/20/2023 19:18:45 12/20/1912/20/2023 URINA LYSIS COMPL ETE/I RIS W/RFX red blood cells 11-20 /i??h pfi?? 0-4 abnormal Not Available [facility] (Lab) [address] [place], [address], 12/20/2023 19:18:45 12/20/1912/20/2023 URINA LYSIS COMPL ETE/I RIS W/RFX bacteria MODERA TE abnormal Not Available [facility] (Lab) [address] [place], [address], 12/20/2023 19:18:45 12/20/1912/20/2023 URINA LYSIS COMPL ETE/I RIS W/RFX mucous OCCASI ONAL /i??l pfi?? abnormal Not Available [facility] (Lab) [address] [place], [address], 12/20/2023 19:18:45 12/20/1912/20/2023 URINA LYSIS COMPL ETE/I RIS W/RFX squamous epithelial PACKED FIELD /i??l pfi?? abnormal Not Available [facility] (Lab) [address] [place], [address], 12/20/2023 19:18:45 12/20/1912/20/2023 URINA LYSIS COMPL ETE/I RIS W/RFX calcium oxalate crystal MODERA TE /i??h pfi?? none seen- abnormal Not Available [facility] (Lab) [address] [place], [address], 12/20/2023 19:18:45 12/20/1912/20/2023 URINA LYSIS COMPL ETE/I RIS W/RFX sperm PRESEN T /i??h pfi?? abnormal Not Available [facility] (Lab) [address] [place], [address], 12/20/2023 19:18:45 02/03/20 24 02/03/2024 urina lysis , dipst ick Leukocytes (reference range: negative sonia/ l) Large Not Available [facility] [address] [place], [address], 02/03/2024 16:50:06 02/03/20 24 02/03/2024 urina lysis , dipst ick Nitrite (reference rage: negative mg/dl) positi ve Not Available [facility] [address] [place], [address], 02/03/2024 16:50:06 02/03/20 24 02/03/2024 urina lysis , dipst ick Urobilinogen (reference range: 0.2-1 mg/dl) 0.2 Not Available [facility] [address] [place], [address], 02/03/2024 16:50:06 02/03/20 24 02/03/2024 urina lysis , dipst ick Protein (reference range: negative mg/dl) Modera te Not Available [facility] [address] [place], [address], 02/03/2024 16:50:06 02/03/20 24 02/03/2024 urina lysis , dipst ick pH (reference range: 5-7) 5.5 Not Available [facility] [address] [place], [address], 02/03/2024 16:50:06 02/03/20 24 02/03/2024 urina lysis , dipst ick Blood (reference range: negative Vic/ l) Modera te Not Available [facility] [address] [place], [address], 02/03/2024 16:50:06 02/03/20 24 02/03/2024 urina lysis , dipst ick Specific [facility] (reference range: 1.005-1.030) 1.030 Not Available [facility] [address] [place], [address], 02/03/2024 16:50:06 02/03/20 24 02/03/2024 urina lysis , dipst ick Ketone (reference range: negative mg/dl) Negati ve Not Available [facility] [address] [place], [address], 02/03/2024 16:50:06 02/03/20 24 02/03/2024 urina lysis , dipst ick Bilirubin (reference range: negative mg/dl) Negati ve Not Available [facility] [address] [place], [address], 02/03/2024 16:50:06 02/03/20 24 02/03/2024 urina lysis , dipst ick Glucose (reference range: negative mg/dl) Negati ve Not Available [facility] [address] [place], [address], 02/03/2024 16:50:06 02/03/20 24 02/03/2024 urina lysis , dipst ick Appearance Cloudy Not Available [facility] [address] [place], [address], 02/03/2024 16:50:06 02/03/20 24 02/03/2024 urina lysis , dipst ick Color Dark Yellow Not Available [facility] [address] [place], [address], 02/03/2024 16:50:06 02/09/20 24 02/09/2024 CT, abdom en + pelvi s, w/o contr ast No observ ation record ed. BARCODE Not Available 2023 14:21:15 Result Notes None recorded. Problems Name Problem SNOMED Code Status Onset Date Resolution Date Notes Provider Name and Address Organization Details Recorded Time Injury of ankle 212331979 Completed 202110/13/2021 Not Available [facility] 3 01:15:32 Disorder of trunk 371334412 Completed Not Available [facility] 3 01:15:32 Postoper ative care Completed 202111/06/2021 Not Available [facility] [place] 3 01:15:32 Postoper ative care Completed 202110/17/2021 Not Available [facility] [place] 3 01:15:32 Chronic obstruct pedro pulmonar y disease 53494879 Active 2021 Not Available [facility] 3 16:23:19 Increase d frequenc y of urinatio n 752038894 Completed Not Available [facility] 3 01:15:32 Nausea and vomiting 31859709 Completed Not Available [facility] 3 01:15:33 Abdomina l pain 66230899 Completed Ekta Navarro MD [address] [facility], [place] [address], [place], [address] , [place] - [facility] 3 10:17:19 Screenin g mammogra phy Completed 202110/13/2021 Not Available [facility] 3 01:15:33 Fibromyo sitis 45985684 Completed rheumato logy, on gabapent in Not Available [facility] 3 01:15:33 Ankle pain 354256920 Completed 202110/13/2021 Not Available [facility] 3 01:15:33 Persiste nt cough 727566206 Completed Not Available [facility] [place] 3 01:15:34 Closed fracture of lateral malleolu s 63600935 Completed 202101/19/2022 Not Available [facility] [place] 3 01:15:34 Closed fracture of lateral malleolu s 34055087 Completed 202110/13/2021 Not Available [facility] [place] 3 01:15:34 Depressi ve disorder 86741974 Active Not Available [facility] [place] 3 16:23:20 Sinusiti s 84474424 Completed Not Available [facility] [place] 3 01:15:34 Migraine 24660049 Active Not Available [facility] [place] 3 16:23:20 Superfic ial dehiscen ce of wound 90793616083 106 Completed 202111/06/2021 Not Available [facility] 3 01:15:35 Hypothyr oidism 36052850 Active Not Available [facility] [place] 3 16:23:20 Obesity 048335449 Active Not Available [facility] [place] 3 16:23:20 Pain of hip region 59601555 Completed Not Available [facility] 3 01:15:35 Upper respirat ory infectio n 22057732 Completed Not Available [facility] 3 01:15:36 Hyperlip idemia 87867992 Active 2017 Not Available [facility] [place] 3 16:23:20 Wheezing 79056763 Completed 202101/19/2022 Not Available [facility] 3 01:15:36 Essentia l hyperten esmer 82011016 Active Not Available [facility] 3 16:23:20 Pruritic rash 14046419 Completed 202110/17/2021 Not Available [facility] 3 01:15:37 Urinary tract infectio us disease 31280553 Completed Not Available [facility] 3 01:15:37 Rheumato id arthriti s 27739036 Active Not Available [facility] [place] 3 16:23:20 Rhinitis 17658694 Active Not Available [facility] [place] 3 16:23:20 Smoker 04431510 Active Not Available [facility] [place] 3 16:23:20 Primary fibromya lgia syndrome 54835646 Active Not Available [facility] [place] 3 16:23:20 Vitamin D deficien cy 24931532 Active 2022 Not Available [facility] [place] 3 16:23:19 Polyp of colon 35421731 Active 2022 Not Available [facility] 3 16:23:20 Divertic ulitis 818816814 Active 2022 Not Available [facility] 3 16:23:19 Obstruct pedro sleep apnea syndrome 67061693 Active 2022 Ekta Navarro MD [address], [place], [address] , [employer] - [facility] 4 16:05:07 Bipolar disorder 56147268 Active 2022 Ekta Navarro MD [address], [place], [address] , [employer] - [employer] [facility] 4 16:05:42 Kaykay a user 302068488 Active 2022 Ekta Navarro MD [address], [place], [address] , [employer] - [facility] [employer] 4 16:05:13 Gastroes ophageal reflux disease 331368189 Active 2022 Ekta Navarro MD [address], [place], [address] , [employer] - [employer] [facility] 3 11:48:27 Hypokale ubaldo 15448552 Active 2023 Eloise ho RMA null, [place] [facility] [employer] [facility] 4 12:13:11 Sleep apnea 76423958 Active 2023 Eloise ho RMGigi null, [place] [facility] 4 12:13:11 Severe chronic obstruct pedro pulmonar y disease 012851876 Active 2023 Rose Marie Healy MA null, [place] [facility] 4 16:29:25 Overacti ve urinary bladder 358864229 Active 2023 Ekta Navarro MD [address], [place], [address] , [facility] 4 16:10:29 Thromboc ytopenic disorder 153539352 Active 2023 Ekta Navarro MD [address], [place], [address] , [facility], [facility] 4 08:49:14 Urinary symptoms 541368384 Active 2023 Eloise ho, RMGigi null, [place] - [facility] 4 16:49:40 Urinary symptoms 516525067 Active 2023 Ekta Navarro MD [address], [place], [address] , [facility], [facility] 4 16:52:01 Hiatal hernia 83717706 Active 2023 Ekta Navarro MD [address], [place], [address] , [facility] - [facility] 4 10:40:20 Skin lesion 68180239 Active 2024 Ekta Navarro MD [address], [place], [address] , [facility], [facility] 5 09:09:14 Tremor 10162244 Active 2024 ANN Castro [address], [place], [address] , [facility], [facility] 5 11:07:53 Notes:Medical History: Bipol ar depression Migraine headaches Bilateral tinnitus Rhinitis Mild COPD Early REM onset Obesity with very severe OSAHS, AHI = 64, 07/02/22 Treatment -emergent central apneas Hypothyroidism Mixed hyperlipidemia Hypertension Diverticulosis/Diverticulitis Hemorrhoids PLMD RA on Enbrel and leflunomide Fibromyalgia Procedure History: T&A 1996 Cholecystectomy 2001 Left ankle surgeries 2002, 2004, 2021 Colonoscopy with polypectomy 2014 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 Procedure Notes None recorded. Medical Equipment None Reported. Allergies Allergen ID Allergen Name Allergen Category Reaction Reaction Severity Criticality Documentation Date Start Date Code Code System Note Provider Name and Address Organization Details Recorded Time 2751 Wellbutri n medicatio n Not available Not available Not available 04/29/2022 68642 RxNorm Not Available [facility] 3 01:34:00 2752 Macrobid medicatio n rash Not available Not available 04/29/2022 43352 1 RxNorm Not Available [facility] 3 01:34:00 2753 latex environme nt,medica tion Not available Not available Not available 04/29/2022 32636 91 RxNorm Not Available [facility] 3 01:34:00 2754 Iodinated contrast media (substanc e) medicatio n rash Not available Not available 04/29/2022 62584 2004 SNOMED Not Available [facility] 3 01:34:00 Medications Name Sig Start Date Stop Date Status Note LastModified by Organization Details LastModified Time quetiapin e 25 mg tablet 02/23 completed Not Available Not Available Not Available fluoxetin e 40 mg capsule TAKE 1 CAPSULE BY MOUTH EVERY DAY active Not Available Not Available No t Available cyclobenz aprine 10 mg tablet Take 1 tablet 3 times a day by oral route at bedtime for 7 days. active Not Available Not Available No t Available amoxicill in 500 mg capsule TAKE ONE CAPSULE 3 TIMES A DAY FOR 7 DAYS active Not Available Not Available No t Available prednison e 10 mg tablet TAKE 4 TABS DAILY IN THE MORNING X5 DAYS, THEN 2 TABS DAILY X5 DAYS, THEN 1 TAB DAILY X5 DAYS 12/29 completed Not Available Not Available Not Available gabapenti n 600 mg tablet Take 1 tablet 3 times a day by oral route. 2012 active Not Available Not Available Not Avai lable doxycycli ne hyclate 100 mg capsule TAKE 1 CAPSULE BY MOUTH TWICE DAILY FOR 5 DAYS. 08/02 completed Not Available Not Available Not Available atorvasta tin 20 mg tablet TAKE 1 TABLET BY MOUTH EVERY DAY active Not Available Not Available No t Available sulfasala zine 500 mg tablet TAKE 2 TABLETS BY MOUTH TWICE A DAY AFTER MEALS active Not Available Not Available No t Available nabumeton e 750 mg tablet active Not Available Not Available Not Available albuterol sulfate 2.5 mg/3 mL (0.083 %) solution for nebulizat ion Inhale 3 mL every 3-4 hours by nebuliza tion route as needed. active Not Available Not Available No t Available trazodone 50 mg tablet active Not Available Not Available Not Available atorvasta tin 10 mg tablet TAKE 1 TABLET BY MOUTH EVERY DAY 09/24 completed Not Available Not Available Not Available azithromy wm 250 mg tablet 2 tabs po qd x 1 day then 1 tab po qd x 4 days active Not Available Not Available No t Available sumatript an 100 mg tablet TAKE 1 TABLET BY MOUTH AT ONSET OF HEADACHE , MAY REPEAT IN 2 HOURS, MAX 2 IN 24 HOURS 2024 active Not Available Not Available Not Avai lable ondansetr on HCl 4 mg tablet TAKE 1 TABLET BY MOUTH THREE TIMES A DAY NEEDED 03/16 completed Not Available Not Available Not Available prednison e 20 mg tablet active Not Available Not Available Not Available clonazepa m 0.5 mg tablet Take 1 tablet twice a day by oral route as needed. active Not Available Not Available No t Available prednison e 5 mg tablet active Not Available Not Available Not Available sulfasala zine 500 mg tablet,de layed release 03/25 completed Not Available Not Available Not Available leflunomi de 10 mg tablet 04/16 completed Not Available Not Available Not Available metronida zole 500 mg tablet TAKE 1 TABLET BY MOUTH EVERY 8 HOURS FOR 7 DAYS 10/15 completed Not Available Not Available Not Available azathiopr ine 50 mg tablet TAKE 1 TABLET BY MOUTH EVERY DAY 02/23 completed Not Available Not Available Not Available acetamino phen 300 mg-codein e 30 mg tablet active Not Available Not Available Not Available ciproflox acin 250 mg tablet Take 1 tablet every 12 hours by oral route for 5 days. 12/30 /2024 completed Not Available Not Available Not Available ciproflox acin 500 mg tablet TAKE 1 TABLET BY MOUTH TWICE A DAY FOR 7 DAYS 10/15 completed Not Available Not Available Not Available sulfameth oxazole 800 mg-trimet hoprim 160 mg tablet TAKE 1 TABLET EVERY 12 HOURS FOR 10 DAYS active Not Available Not Available No t Available peg-elect rolyte solution 420 gram oral solution DRINK 1/2 AT 5PM ON 03-09-22 AND OTHER 1/2 AT 5AM ON 03-10-2210/15 completed Not Available Not Available Not Available omeprazol e 40 mg capsule,d elayed release TAKE 1 CAPSULE BY MOUTH EVERY DAY active Not Available Not Available No t Available leflunomi de 20 mg tablet TAKE 1 TABLET BY MOUTH EVERY DAY active Not Available Not Available No t Available tramadol 50 mg tablet Take 1 tablet 3 times a day by oral route. 2012 active Not Available Not Available Not Avai lable quetiapin e 100 mg tablet TAKE 1 TABLET BY MOUTH TWICE A DAY 02/23 completed Not Available Not Available Not Available amitripty line 50 mg tablet active Not Available Not Available No t Available amoxicill in 500 mg tablet Take 1 tablet 3 times a day by oral route for 7 days. active Not Available Not Available No t Available levothyro xine 25 mcg tablet active Not Available Not Available Not Available lamotrigi ne 25 mg tablet Take 1 tablet twice a day by oral route for 30 days. 03/16 completed Not Available Not Available Not Available levothyro xine 75 mcg tablet active Not Available Not Available Not Available nortripty line 25 mg capsule active Not Available Not Available Not Available levothyro xine 100 mcg tablet TAKE 1 TABLET BY MOUTH EVERY DAY 04/01 completed Not Available Not Available Not Available oxycodone -acetamin ophen 5 mg-325 mg tablet 06/16 completed Not Available Not Available Not Available levothyro xine 88 mcg tablet TAKE 1 TABLET BY MOUTH EVERY DAY 10/15 completed Not Available Not Available Not Available alprazola m 0.25 mg tablet active Not Available Not Available Not Available potassium chloride ER 20 mEq tablet,ex tended release(p art/cryst ) TAKE 1 TABLET BY MOUTH EVERY DAY 08/02 completed Not Available Not Available Not Available famotidin e 20 mg tablet TAKE 1 TABLET BY MOUTH 30 MINUTES BEFORE BREAKFAS T AND DINNER FOR UP TO 6 WEEKS active Not Available Not Available No t Available metoclopr amide 5 mg tablet TAKE 1 TABLET BY MOUTH TWICE A DAY BEFORE MEALS X14 DAYS 08/02 completed Not Available Not Available Not Available methotrex ate sodium 2.5 mg tablet active Not Available Not Available Not Available Silvadene 1 % topical cream APPLY A 1/16 INCH (1.5 MM) THICK LAYER TO ENTIRE wound AREA BY TOPICAL ROUTE 2 TIMES PER DAY 06/16 completed Not Available Not Available Not Available oxycodone -acetamin ophen 10 mg-325 mg tablet TAKE 1 TABLET BY MOUTH EVERY 6 HOURS NEEDED FOR PAIN 03/25 completed Not Available Not Available Not Available amlodipin e 10 mg tablet TAKE 1 TABLET BY MOUTH EVERY DAY active Not Available Not Available No t Available prednison e 2.5 mg tablet PLEASE SEE ATTACHED FOR DETAILED DIRECTIO NS 03/26 completed Not Available Not Available Not Available cephalexi n 500 mg capsule active Not Available Not Available Not Available simvastat in 20 mg tablet Take 1 tablet every day by oral route. 10/15 completed Not Available Not Available Not Available triamcino lone acetonide 0.1 % topical ointment RUB IN WELL TWICE A DAY TO RED AREAS ON SKIN UNTIL CLEAR 06/16 completed Not Available Not Available Not Available lisinopri l 10 mg tablet Take 1 tablet every day by oral route. 07/31 completed Not Available Not Available Not Available fluoxetin e 10 mg capsule TAKE 1 CAPSULE BY MOUTH EVERY DAY 11/13 completed Not Available Not Available Not Available gabapenti n 300 mg capsule Take 1 capsule every day by oral route for 90 days. 04/16 completed Not Available Not Available Not Available diclofena c sodium 75 mg tablet,de layed release Take 1 tablet twice a day by oral route. 2012 active Not Available Not Available Not Avai lable folic acid 1 mg tablet active Not Available Not Available Not Available hydroxyzi ne HCl 25 mg tablet Take 1 tablet 3 times a day by oral route. active Not Available Not Available No t Available bisacodyl 5 mg tablet,de layed release TAKE 6 TABLETS BY MOUTH AT 8AM ON 03-09-2210/15 completed Not Available Not Available Not Available Levaquin 500 mg tablet Take 1 tablet every 24 hours by oral route for 7 days. 07/21 completed Not Available Not Available Not Available mirtazapi ne 15 mg tablet 1/2 tab at bed time 05/10 completed Psychiat rist Not Available Not Available Not Available ergocalci ferol (vitamin D2) 1,250 mcg (50,000 unit) capsule TAKE 1 CAPSULE BY MOUTH ONCE WEEKLY 01/03 completed Not Available Not Available Not Available hydroxych loroquine 200 mg tablet TAKE 2 TABLETS BY MOUTH EVERY DAY active Not Available Not Available No t Available lisinopri l 10 mg-hydroc hlorothia zide 12.5 mg tablet TAKE 1 TABLET BY MOUTH EVERY DAY active Not Available Not Available No t Available oxycodone -acetamin ophen 7.5 mg-325 mg tablet active Not Available Not Available Not Available methylpre dnisolone 4 mg tablets in a dose pack TAKE 6 TABLETS ON DAY 1 DIRECTED ON PACKAGE AND DECREASE BY 1 TAB EACH DAY FOR A TOTAL OF 6 DAYS 08/02 completed Not Available Not Available Not Available albuterol sulfate HFA 90 mcg/actua tion aerosol inhaler TAKE 2 PUFFS BY MOUTH EVERY 4 HOURS NEEDED active Not Available Not Available No t Available lisinopri l 40 mg tablet TAKE 1 TABLET BY MOUTH EVERY DAY active Not Available Not Available No t Available ondansetr on 4 mg disintegr ating tablet TAKE 1 TABLET BY MOUTH EVERY 6-8 HOURS NEEDED FOR NAUSEA active Not Available Not Available No t Available fluoxetin e 20 mg capsule TAKE 1 CAPSULE BY MOUTH EVERY DAY 08/02 completed Not Available Not Available Not Available fluticaso ne propionat e 50 mcg/actua tion nasal spray,jacek pension INSTILL 1 SPRAY INTO EACH NOSTRIL DAILY 02/23 completed Not Available Not Available Not Available lamotrigi ne 100 mg tablet TAKE 1 TABLET BY MOUTH TWICE A DAY active Not Available Not Available No t Available naproxen 500 mg tablet TAKE 1 TABLET BY MOUTH TWICE A DAY WITH FOOD 08/18 completed Not Available Not Available Not Available levothyro xine 112 mcg tablet TAKE 1 TABLET BY MOUTH EVERY DAY active Not Available Not Available No t Available amoxicill in 875 mg-potass ium clavulana te 125 mg tablet TAKE 1 TABLET BY MOUTH EVERY 12 HOURS 05/10 completed Not Available Not Available Not Available oxycodone 5 mg tablet TAKE 1 TABLET BY MOUTH EVERY 6 HOURS NEEDED FOR PAIN active Not Available Not Available No t Available escitalop gordy 20 mg tablet TAKE 1 TABLET EVERY DAY 04/16 completed Not Available Not Available Not Available nitrofura ntoin monohydra te/macroc rystals 100 mg capsule TAKE 1 TABLE BY MOUTH EVERY 12 HOURS WITH FOOD 08/18 completed rash after finishin g Not Available Not Available Not Available chlorhexi dine gluconate 0.12 % mouthwash active Not Available Not Available No t Available Enbrel SureClick 50 mg/mL (1 mL) subcutane ous pen injector active Not Available Not Available Not Available oxycodone 10 mg tablet TAKE 1 TABLET BY MOUTH EVERY 4-6 HOURS NEEDED FOR PAIN 11/17 completed Not Available Not Available Not Available levothyro xine 112 mcg capsule take one tab daily 05/06 completed Not Available Not Available Not Available Suprep Bowel Prep Kit 17.5 gram-3.13 gram-1.6 gram oral solution USE DIRECTED active Not Available Not Available No t Available Butrans 10 mcg/hour transderm al patch Apply 1 patch every week by transder m. route for 28 days. active Not Available Not Available No t Available Butrans 5 mcg/hour transderm al patch active Not Available Not Available Not Available Orencia 125 mg/mL subcutane ous syringe 02/23 completed Not Available Not Available Not Available mirabegro n ER 50 mg tablet,ex tended release 24 hr TAKE 1 TABLET BY MOUTH EVERY DAY active Not Available Not Available No t Available Vraylar 4.5 mg capsule TAKE 1 CAPSULE BY MOUTH EVERY DAY 10/21 completed Not Available Not Available Not Available Vraylar 3 mg capsule TAKE 1 CAPSULE BY MOUTH EVERY DAY active Not Available Not Available No t Available Orencia ClickJect 125 mg/mL subcutane ous auto-inje ctor 10/21 completed Not Available Not Available Not Available Ingrezza 2024 active called psych after OV and medicati on was started for tremors- Neuro referral still sent Not Available Not Available Not Available Trelegy Ellipta 100 mcg-62.5 mcg-25 mcg powder for inhalatio n INHALE 1 PUFF BY MOUTH EVERY DAY active Not Available Not Available No t Available Enbrel Mini 50 mg/mL (1 mL) subcutane ous cartridge active Not Available Not Available No t Available Avsola 100 mg intraveno us solution 06/16 completed Not Available Not Available Not Available Breztri Aerospher e 160 mcg-9mcg- 4.8mcg/ac tuation HFA aerosol inhaler TAKE 2 PUFFS BY MOUTH TWICE A DAY 08/18 completed Not Available Not Available Not Available Vitals Date Recorded Body height Body mass index (BMI) Body weight Body temperature Heart rate Oxygen saturation Oxygen saturation in Arterial blood by Pulse oximetry Systolic blood pressure Diastolic blood pressure Provider Name and Address Organization Details Last Updated DateTime 5 165.1 cm 41.1 kg/m2 006471. 32 g 96.8 [degF] 82 /min 98 % 98 % 144 mm[Hg] 84 mm[Hg] PERRY [facility] [employer] 5 08:48:33 Date Recorded Body height Body mass index (BMI) Body weight Body temperature Heart rate Oxygen saturation Oxygen saturation in Arterial blood by Pulse oximetry Systolic blood pressure Diastolic blood pressure Provider Name and Address Organization Details Last Updated DateTime 5 165.1 cm 42.3 kg/m2 065917. 46 g 97.3 [degF] 83 /min 97 % 97 % 144 mm[Hg] 76 mm[Hg] Dara thomas [employer] 5 15:26:55 Date Recorded Body height Body mass index (BMI) Body weight Body temperature Heart rate Respiratory rate Oxygen saturation Oxygen saturation in Arterial blood by Pulse oximetry Systolic blood pressure Diastolic blood pressure Provider Name and Address Organization Details Last Updated DateTime 5 165.1 cm 39.3 kg/m2 264706. 8 g 97.3 [degF] 84 /min 24 /min 96 % 96 % 122 mm[Hg] 78 mm[Hg] Rose Marie Healy MA [employer] 5 10:54:56 Date Recorded Body height Body mass index (BMI) Body weight Body temperature Heart rate Oxygen saturation Oxygen saturation in Arterial blood by Pulse oximetry Systolic blood pressure Diastolic blood pressure Provider Name and Address Organization Details Last Updated DateTime 4 165.1 cm 41.6 kg/m2 342977. 09 g 96.8 [degF] 67 /min 98 % 98 % 160 mm[Hg] 90 mm[Hg] PERRY Cheng [facility] [employer] [facility] 4 10:29:06 Date Recorded Body height Body mass index (BMI) Body weight Body temperature Heart rate Oxygen saturation Oxygen saturation in Arterial blood by Pulse oximetry Systolic blood pressure Diastolic blood pressure Provider Name and Address Organization Details Last Updated DateTime 4 165.1 cm 40.8 kg/m2 882771. 13 g 98 [degF] 77 /min 96 % 96 % 182 mm[Hg] 94 mm[Hg] PERRY Cheng [facility] [employer] [facility] 4 16:37:37 Social History Question Answer Notes LastModified by ServiceBenchizat ion Details LastModified Time Tobacco Smoking Status Former Smoker Not Available [facility] 04/29/2022 00:56:49 Do You Have An Advance Directive? No [id number] Information not available 04/29/2022 What Is Your Level Of Caffeine Consumption? Occasional MIGRATION.[id number] Information not available 04/29/2022 How Much Tobacco Do You Chew? None MIGRATION.72163 [id number] Information not available 04/29/2022 In The 14 Days Before Symptom Onset, Have You Had Close Contact With A Laboratory-confir med COVID-19 While That Case Was Ill? No MIGRATION.[id number] Information not available 04/29/2022 In The 14 Days Before Symptom Onset, Have You Had Close Contact With A Person Who Is Under Investigation For COVID-19 While That Person Was Ill? No MIGRATION.[id number] Information not available 04/29/2022 What Type Of Diet Are You Following? REGULAR MIGRATION.20083 [id number] Information not available 04/29/2022 Which Illicit Or Recreational Drugs Have You Used? Marijuana Information not available 10/15/2022 Do You Have An Electrostatic Air Filter? No Information not available 10/15/2022 Have There Been Any Changes To Your Family Or Social Situation? No MIGRATION.[id number] Information not available 04/29/2022 What Is The Fluoride Status Of Your Home? Unknown MIGRATION.[id number] 60965 Information not available 04/29/2022 Do You Have A Humidifier? Yes Information not available 10/15/2022 Where Do You Live? [place] MIGRATION.01233 [id number] Information not available 04/29/2022 Do You Have A Medical Power Of Tank Systems Maintainer? No MIGRATION.68651 [id number] Information not available 04/29/2022 Do You Have Moisture Problems In Your Home? No Information not available 10/15/2022 What Was The Date Of Your Most Recent Tobacco Screening? 12/01/2022 Information not available 12/01/2022 Have You Ever Been Counseled For Unhealthy Alcohol Use? No MIGRATION.[id number] Information not available 04/29/2022 Do You Have Any Pets? Yes Information not available 10/15/2022 Do You Use Your Seat Belt Or Car Seat Routinely? Yes MIGRATION.[id number] Information not available 04/29/2022 Do You Have Smoke And Carbon Monoxide Detectors In Your Home? Yes MIGRATION.42481 [id number] Information not available 04/29/2022 At What Age Did You Start Smoking Tobacco? 11 MIGRATION.49577 70916 Information not available 04/29/2022 Are You Passively Exposed To Smoke? No MIGRATION.64769 21327 Information not available 04/29/2022 Are There Any Smokers In Your House? No MIGRATION.38853 64092 Information not available 04/29/2022 Do You Use Sunscreen Routinely? Yes MIGRATION.51959 58052 Information not available 04/29/2022 Has Tobacco Cessation Counseling Been Provided? No MIGRATION.06246 82612 Information not available 04/29/2022 Have You Recently Traveled Abroad? No MIGRATION.68579 86449 Information not available 04/29/2022 Do You Have Any Dietary Restrictions? No MIGRATION.77281 38568 Information not available 04/29/2022 Sex: Unknown Functional Status Question Answer Note LastModified by Organizat ion Details LastModified Time Do you use any illicit or recreational drugs? No MIGRATION.512451 6960 Information not available 04/29/2022 Do you or have you ever used any other forms of tobacco or nicotine? No MIGRATION.864687 7110 Information not available 04/29/2022 What is your level of alcohol consumption? Occasional MIGRATION.986615 4058 Information not available 04/29/2022 Do you or have you ever used smokeless tobacco? Never used smokeless tobacco MIGRATION.[id number] 4646 Information not available 04/29/2022 What is your occupation? retired MIGRATION.746682 7917 Information not available 04/29/2022 Do you or have you ever used e-cigarettes or vape? Never used electronic cigarettes MIGRATION.[id number] 3945 Information not available 04/29/2022 What is your exercise level? Occasional MIGRATION.[id number] 8260 Information not available 04/29/2022 Mental Status None recorded. Family History Relationship Description Onset Age of this Age Resolved Age Notes LastModified by Organization Details LastModified Time Father Heart disease [id number] Not available 04/29/2022 01:01:39 Father Essential hypertension [email or web address] Not available 15:12:02 Mother Diabetes mellitus [id number].[id number] Not available 04/29/2022 01:01:39 Paternal Grandmother Heart disease MIGRATION.[id number] Not available 04/29/2022 01:01:39 Paternal Grandmother Malignant neoplastic disease Not available 05/17 15:12:02 Paternal Aunt Malignant neoplastic disease [email or web address] Not available 05/17 15:12:02 Mother Malignant neoplasm of skin [email or web address] Not available 2024 10:58:53 Medical History Condition Response HIGH CHOLESTEROL / HYPERLIPIDEMIA Y DEPRESSION (INCLUDING POST ) Y OBESITY Y OSTEOPOROSIS Y ARTHRITIS Y HYPERTENSION Y CANCER: SPECIFY Y Gynecological HistoryNo gynecological history recorded. Obstetrics History GPAL:G 0 P 0 0 0 0 Past Encounters Encounter ID Performer Location Encounter Start Date Encounter Closed Date Diagnosis/Indication Diagnosis SNOMED-CT Code Diagnosis ICD10 Code Diagnosis Note [id number] MD NACHO Wells[facility] Internal Med [facility] [address] [facility] [address] 05/06/2020 00:00:00 05/06/2020 12:27:19 [id number] Ekta Navarro MD Steven[facility] Internal Med [facility] [address] [facility] [address] 10/21/2020 00:00:00 10/21/2020 15:38:34 [id number] Ekta Navarro MD [facility] Internal Med [address] [facility] [address] 11/13/2020 00:00:00 11/13/2020 16:17:28 [id number] Ekta Navarro MD [facility] Internal Med [address] [place] [address] 04/15/2021 00:00:00 04/15/2021 15:51:21 [id number] Ekta Navarro MD [facility] Internal Med [address] [facility] [address] 07/10/2021 00:00:00 07/10/2021 11:38:54 [id number] Raymon Moyer DPM [facility] [address] [address] 07/14/2021 00:00:00 07/14/2021 11:34:00 [id number] Ekta Navarro MD [facility] Internal Med [address] [facility] [address] 07/31/2021 00:00:00 07/31/2021 15:29:41 [id number] Raymon Moyer DPM [facility] [address] [address] 07/31/2021 00:00:00 07/31/2021 13:23:06 [id number] Ekta Navarro MD [facility] Internal Med [address] [facility] [facility] [address] 08/18/2021 00:00:00 08/18/2021 16:10:21 [id number] Raymon Moyer DPM [facility] [place] [address] [place] [address] 08/21/2021 00:00:00 08/26/2021 12:17:26 [id number] Raymon Moyer DPM [facility] [address] [place] [address] 09/18/2021 00:00:00 09/18/2021 17:01:27 [id number] Ekta Navarro MD [facility] Internal Med [address] [place] [address] 09/23/2021 00:00:00 09/23/2021 13:01:17 [id number] Raymon Moyer DPM [facility] [place] [address] [place] [address] 10/13/2021 00:00:00 10/13/2021 10:22:34 [id number] Raymon Moyer DPM [facility] [place] [address] [place] [address] 10/27/2021 00:00:00 10/27/2021 11:20:52 [id number] Raymon Moyer DPM [facility] [address] [address] 11/04/2021 00:00:00 11/04/2021 13:23:41 [id number] Raymon Moyer DPM [facility] [place] [address] [place] [address] 11/24/2021 00:00:00 11/24/2021 12:33:40 [id number] Ekta Navarro MD [facility] Internal Med [address] [place] [address] 12/29/2021 00:00:00 12/29/2021 15:51:24 [id number] Ekta Navarro MD [facility] Internal Med [address] [place] [address] 01/20/2022 00:00:00 01/20/2022 12:58:36 [id number] Ekta Navarro MD [facility] Internal Med [address] [facility] [place] [address] 06/16/2022 09:57:35 06/16/2022 10:55:07 Fatigue 50122434 R53.83 Sleep alivia ana disturbance 79528704 G47.9 sleep score high, report in the chart, [id number] Ekta Navarro MD [facility] Internal Med [address] [facility] [address] 08/13/2022 14:34:12 08/13/2022 15:20:17 Abdominal pain 98050952 R10.9 most likely diverticul itis, will treat, take dietary precaution s,call if not better, ER if pain gets worse [id number] Ekta Navarro MD S_[facility] Internal Med [address] [facility] [address] 08/20/2022 10:11:52 08/20/2022 10:33:18 Diverticulitis 378136028 K57.92 pain has improved, finish abx, take imodium prn [id number] Ramarkishna Reagan MD [facility] Pulmonolo gy [address] [place] [address] 10/15/2022 15:23:14 10/16/2022 08:08:32 Obstructive sleep apnea syndrome 64071345 G47.33 G47.30 G47.36 G47.[id number] [facility] Internal [facility] [address] [facility] [address] 11/04/2022 15:13:03 11/04/2022 15:53:31 Essential hypertension 77427252 I10 under control Depressive disorder 3548 9007 F32.A stable Bipolar disorder 0303441 4 F31.9 stable Hypothyroidism 04081145 E03.9 under control Migraine 42713151 G43.90 9 meds help Obesity 470932983 E66.9 advised to lose Rheumatoid arthritis 698 00119 M06.9 stable with meds Hypokalemia 35527655 E87 .6 stable Chronic ob structive pulmonary disease 29646974 J44.9 under control Vitamin D deficiency 347 58595 E55.9 on meds Marijuana user 356800129 F12.90 advised to stop Adult heal th examination 294306947 Z00.00 Colonoscop y- 06/11/2014 Mammogram- 02/19 Dexa- 03/2020 Paps not required, DANIEL w/o bso FLU- Does not get COVID- DOES NOT WANT Sleep apnea 35325504 G47 .30 to get titration [id number] Ramakrishna Reagan MD [facility] Pulmonolo gy [place] [address] [facility] [address] [place] [address] 12/01/2022 12:20:50 12/01/2022 14:02:14 Obstructive sleep apnea syndrome 75141481 G47.33 [id number] Ekta Navarro MD [facility] Internal Med [address] [facility] [address] 12/18/2022 11:05:50 12/18/2022 11:57:58 Gastroesophageal reflux disease 139517432 K21.9 could be causing vomiting [id number] Ekta Navarro MD [facility] Internal [address] [place] [address] 03/26/2023 11:50:07 03/26/2023 12:41:02 Essential hypertension 65858667 I10 under control Depressive disorder 3548 9007 F32.A under control Bipolar disorder 5417789 4 F31.9 stable Hypothyroidism 66735191 E03.9 under control Migraine 87961514 G43.90 9 meds help Obesity 808970838 E66.9 advised to lose Rheumatoid arthritis 698 94660 M06.9 stable with meds Hypokalemia 81519812 E87 .6 stable Chronic ob structive pulmonary disease 58466374 J44.9 under control Vitamin D deficiency 347 95811 E55.9 on meds Marijuana user 348017524 F12.90 advised to stop Adult heal th examination 340094806 Z00.00 Colonoscop y- 03/23, nl , next in 10yrs Mammogram- 02/19 Dexa- 03/2020 Paps not required, DANIEL w/o bso FLU- Does not get COVID- DOES NOT WANT Sleep apnea 34805299 G47 .30 can't afford Gastroesop hageal reflux disease 914844243 K21.9 on meds, still gets vomiting [id number] Ekta Navarro MD [facility] Internal Med [address] [place] [address] 04/08/2023 14:34:34 04/08/2023 14:52:26 Essential hypertension 05798454 I10 FOR NOW WATCH, SAME MEDS, RECHECK IN 3 WEEKSMEDS ADJUSTMENT IF NEEDEDBP WAS GOOD RECENTLY [id number] Ekta Navarro MD [facility] Internal Med [address] [facility] [address] 05/14/2023 11:18:38 05/14/2023 11:52:17 Essential hypertension 30426849 I10 getting better, lose weight, watch salt Chronic ob structive pulmonary disease 92444376 J44.9 still with wheezing , try trelegy, sample for a week [id number] Ekta Navarro MD [facility] Internal Med [facility] [address] [facility] [address] 08/19/2023 15:22:17 08/19/2023 16:19:44 Essential hypertension 54143294 I10 under control Depressive disorder 3548 9007 F32.A under control Bipolar disorder 7933023 4 F31.9 stable Hypothyroidism 42566002 E03.9 under control Migraine 14347899 G43.90 9 meds help Obesity 203715791 E66.9 advised to lose Rheumatoid arthritis 698 78957 M06.9 stable with meds Hypokalemia 78541844 E87 .6 stable Chronic ob structive pulmonary disease 77832782 J44.9 under control Vitamin D deficiency 347 71529 E55.9 on meds Marijuana user 726794610 F12.90 advised to stop Adult heal th examination 753013820 Z00.00 Colonoscop y- 03/23, nl , next in [address] [place] [address] gram- 02/19Dexa- 1Pap s not required, DANIEL w/o bsoFLU- Does not getCOVID- DOES NOT WANT Sleep apnea 61646968 G47 .30 can't afford Gastroesop hageal reflux disease 936828353 K21.9 better Screening mammography 24 972940 Z12.31 Overactive urinary bladder 984962023 N32.81 try Myrbetriq 50 mg qd [id number] Ekta Navarro MD [facility] Internal Med [facility] [address] [facility] [address] 12/06/2023 16:05:52 12/06/2023 16:54:32 Urinary symptoms 624183297 R39.9 dip stick noted, drink more water [id number] Ekta Navarro MD [facility] Internal [facility] [address] [place] [address] 12/20/2023 10:12:05 12/20/2023 10:47:17 Hiatal hernia 32825231 K44.9 vomiting is getting worse, to see GI , may need surgery Urinary symptoms 5482664 08 R39.9 dip stick noted, drink more water [id number] Ekta Navarro MD [facility] Internal [facility] [address] [place] [address] 01/04/2024 10:20:15 01/04/2024 10:46:38 Essential hypertension 10053395 I10 was always under control, watch for a month, monitor at home and recheck in a month Depressive disorder 3548 9007 F32.A under control Bipolar disorder 6438971 4 F31.9 stable with meds Hypothyroidism 84771094 E03.9 under control Migraine 06997298 G43.90 9 meds help Obesity 082385805 E66.9 advised to lose Rheumatoid arthritis 698 63610 M06.9 stable with meds Hypokalemia 92245423 E87 .6 stable Chronic ob structive pulmonary disease 72551198 J44.9 under control with meds Vitamin D deficiency 347 84369 E55.9 to take otc Marijuana user [id number] F12.90 advised to stop Adult heal th examination 645447795 Z00.00 Colonoscop y- 03/23, nl , next in 10yrsEGD- 04/07/2023 Sleep Study- 11/26/2022 Mammogram- 09/20/2023 Dexa- ap s not required, DANIEL w/o bsoFLU- Does not getCOVID- DOES NOT WANT Sleep apnea 26874627 G47 .30 can't afford Gastroesop hageal reflux disease 142003688 K21.9 better Overactive urinary bladder 732589886 N32.81 generic Myrbetriq helps [id number] Ekta Navarro MD [facility] Internal Med [facility] [address] [facility] [address] 02/03/2024 16:31:35 02/03/2024 17:05:20 Essential hypertension 53845320 I10 add amlodipine Urinary symptoms 2701802 08 R39.9 dip stick noted, drink more water [id number] Ekta Navarro MD [facility] Internal Med [facility] [address] [facility] [address] 03/13/2024 08:41:08 03/13/2024 09:12:59 Essential hypertension 56106203 I10 getting better with amlodipine Skin lesion 15645564 L98 .9 [id number] Ekta Navarro MD [facility] Internal [facility] [address] [facility] [address] 05/17/2024 15:11:12 05/17/2024 15:56:30 Essential hypertension 49276038 I10 better Depressive disorder 3548 9007 F32.A under control Bipolar disorder 4347822 4 F31.9 stable with meds Hypothyroidism 52574370 E03.9 under control Migraine 66268878 G43.90 9 meds help Obesity 688573701 E66.9 advised to lose, watch diet Rheumatoid arthritis 698 10339 M06.9 stable with meds Hypokalemia 70042430 E87 .6 stable Chronic ob structive pulmonary disease 24305123 J44.9 under control with meds Vitamin D deficiency 347 59240 E55.9 to take otc Adult heal th examination 851109678 Z00.00 Colonoscop y- 03/23, nl , next in 10yrsEGD- 04/07/2023 Sleep Study- 11/26/2022 Mammogram- 09/20/2023 Dexa- ap s not required, DANIEL w/o bsoFLU- Does not getCOVID- DOES NOT WANT Sleep apnea 14622311 G47 .30 can't afford cpap Gastroesop hageal reflux disease 983027249 K21.9 better Overactive urinary bladder 334843034 N32.81 generic Myrbetriq helps [id number] Ekta Navarro MD [facility] Internal Med [facility] [address] [facility] [address] 08/02/2024 10:46:15 08/02/2024 11:34:35 Tremor 61260797 R25.1 Health Concerns Section Related Observation LastModified by Organization Detai ls LastModified Time None Recorded Concern Status LastModified by Organization Details LastModified Time None Recorded Advance Directives Directive N: Payers Encounter Date Sequence Insurance Name Policy Number Policy Joyce Covered Member ID Joyce Member ID Guarantor Name 01/04/2024 1 [facility] [id number] Leeroy Mendoza [id number] Izabella Mendoza 02/03/2024 1 [facility] [id number] Leeroy Mendoza [id number] Izabella Mendoza 03/13/2024 1 [facility] [id number] Leeroy Mendoza [id number] Izabella Mendoza 05/17/2024 1 [facility] [id number] Leeroy Mendoza [id number] Izabella Mendoza 08/02/2024 1 [facility] [id number] Leeroy Mendoza [id number] Izabella Mendoza Notes Date Note Type Note Provider Name and Address Organization Details Recorded Time 4 text/html She is here today for her routine follow up PT [facility] ( [facility] ) Hypertension- High today 166/90, BP WAS ALWAYS HIGHDenies any headache, SOB, chest pain. She has not taken her meds yet this morningMeds- Lisinopril 40mg daily Depression- Meds help, no anxiety, mood is stable, seeing psychMeds- Fluoxetine 20mg daily Bipolar- Sees Sondra Martínez (Psych)Meds- Lamotrigine 100mg BID, Vraylar 3mg daily COPD-inhalers help, no sob or coughMeds- Albuterol Inhaler, Trelegy Ellipta Hyperlipidemia- On meds, labs GOODMeds- Atorvastatin 20mg daily Hypothyroidism- labs goodMeds- Levothyroxine 100mcg daily Migraine- Has not had migraine in a few monthsMeds- Sumatriptan 100mg as needed Obesity- has stayed the same RA- Seen Dr. Montejo, meds helpMeds- Enbrel and Leflunomide 20mg daily EX-Smoker- quit in 1999, smoked 1ppd x 24 yrs, Does not smoke cigarettes, Only Marijuana, Vitamin D def-Meds- not on otc sleep apnea- can't afford cpap GERD- on meds, and better, had EGD, no more vomitingMeds- Omeprazole 40mg daily Overactive bladder- getting worse, has never taken meds Ekta Navarro MD [address], [place], [address], [facility] [employer] [employer] [facility] 01/04/2024 10:44:50 4 text/html Pt is here today for a blood pressure follow up. BP was high, taking meds, no headache or dizzinessno cp or sobToday her b/p is 192/ 108Her machine is 201/95Also C/o urinary issues. Strong Odor and really dark, mild burning Ekta Navarro MD [address], [facility] [address], [place], [address], [facility] [employer] [facility] 02/03/2024 17:04:24 5 text/html Pt is here today for a 1 month follow up checking her blood pressure.Pt states that she still has been getting headachesAmlodipine was added.Today her b/p is 144/84Also has a growth on the left side of her head that recently came up. States that she noticed it about 1 month ago. Keeps getting larger and is tender. No h/o skin cancer in the past. Ekta Navarro MD [address], [place], [address], [facility] [employer] [facility] 03/13/2024 09:10:26 5 text/html pt is here for f/u. She has recently found out she has skin cancer on the left restoration early Apr. On 04/28/24 (was cut off)and will surgical remove the cancerous tissue 05/31/24 (maybe another one but, they will check on on the same day if so.Also found some cancerous tissue on her right forearm that they will freeze on 06/06/24. Hypertension- betteMeds- Lisinopril 40mg daily, Amlodipine 10 mg qd Depression- Meds help, no anxiety, mood is stable, seeing psychMeds- Fluoxetine 20mg daily Bipolar- Sees Sondra Martínez (Psych)Meds- Lamotrigine 100mg BID, Vraylar 3mg daily COPD-inhalers help, no sob or coughMeds- Albuterol Inhaler, Trelegy Ellipta Hyperlipidemia- On meds, labs Meds- Atorvastatin 20mg daily Hypothyroidism- labs good 09/21Meds- Levothyroxine 100mcg daily Migraine- Has not had migraine in a few monthsMeds- Sumatriptan 100mg as needed Obesity- advised to lose RA- Seen Dr. Montejo, meds helpMeds- Enbrel and Leflunomide 20mg daily EX-Smoker- quit in 1999, smoked 1ppd x 24 yrs, Does not smoke cigarettes, Only Marijuana, Vitamin D def-Meds- not on otc sleep apnea- can't afford cpap GERD- on meds, and better, had EGD, no more vomitingMeds- Omeprazole 40mg daily Overactive bladder-on meds helpsMeds- Mirabegron ER 50 mg qd Ekta Navarro MD [id number], [place], [address], [employer] 05/17/2024 15:55:07 5 text/html Patient is 67y/o female who is here to discuss increasing tremors. Patient states that she sees psych regularly as well as rheumatolgoy. She reports that she has been on her medications for a while with no changes. She denies any tongue movements or noticeable facial movements. She denies any changes in walking or speaking or movements with arms. She reports that her tremors have increased the last 3-4 months. lamotringe- adverse effects tremors tremors are different. - pill rolling and foot tapping, no facial or tongue movement's, no fevers, no changes in speaking or cognition Seeing RA- tomorrow- see yasir-ANN Nicole [address], [place], [address], [employer] 08/02/2024 11:27:07 OBGyn Episode No OBEpisode recorded.
--- OUTSIDE RECORDS SUMMARY | 2024-08-03 09:08 | XMS_ITS | Continuity of Care Document ---
Author Organization [place] [facility] [employer] [facility], [facility] Internal [facility] [address] Address [address] [place] [address] Care Team Providers Care Wing Scorer Name Role Phone EKTA IBRAHIM Primary Care Provider EKTA IBRAHIM Referring Provider Assessment No assessment recorded. Plan of Treatment Reminders Order Date Submit Date Provider Last Modified By Organization Details Last Modified Time Details Appointments Any 15 2024 01:30P M Ekta Ibrahim MD Not available Not available Not available Lab TSH, serum or plasma 2024 025 [email or web address] Neuropure [facility], [facility] Yolanda Rutledge, [address], [place], [address], 08/02/2024 14:08:[address] referral - increasin g tremors- seeing psych to discuss meds as well. 2024 025 [email or web address] [facility], Prabhakar Rutledge, [place], [address], 08/02/2024 11:34:36 Procedures None recorded. Surgeries None recorded. Imaging None recorded. Medication Orders None recorded. Patient TargetsNo targets recorded. Patient Instructions Encounter Date Encounter Id Patient Instructions Last Modified By Organization Details Last Modified Time 08/02/2024 [id number] Call Psych to discuss medications and likely side effects. Neurology consult sent at this time. [email or web address] Not available 08/02/2024 11:25:47 Discussed medications side effects vs. Neurological symptoms. will call with lab results. Please have RA send updated recent labs to our office. Not available 08/02/2024 11:26:30 Reason for Referral Neurologist Referral for Benny mor increasing tremors- seeing psych to discuss meds as well. Referring Physician: Mariama Mauricio, Internal Medicine, Encounter Date: 08/02/2024 Problems Name Problem SNOMED Code Status Onset Date Resolution Date Notes Provider Name and Address Organization Details Recorded Time Injury of ankle 837552642 Completed 202110/13/2021 Not Available [facility] 3 01:15:32 Disorder of trunk 418217656 Completed Not Available [facility] 3 01:15:32 Postoper ative care Completed 202111/06/2021 Not Available [facility] 3 01:15:32 Postoper ative care Completed 202110/17/2021 Not Available [facility] 3 01:15:32 Chronic obstruct pedro pulmonar y disease 45257396 Active 2021 Not Available [facility] 3 16:23:19 Increase d frequenc y of urinatio n 586234639 Completed Not Available [facility] 3 01:15:32 Nausea and vomiting 65119016 Completed Not Available [facility] 3 01:15:33 Abdomina l pain 09067827 Completed Ekta Ibrahim MD [address] [facility], [address], [address] , [facility] [employer] [facility] 3 10:17:19 Screenin g mammogra phy Completed 202110/13/2021 Not Available [facility] 3 01:15:33 Fibromyo sitis 37558751 Completed rheumato logy, on gabapent in Not Available [facility] 3 01:15:33 Ankle pain 254230555 Completed 202110/13/2021 Not Available [facility] 3 01:15:33 Persiste nt cough 895522933 Completed Not Available [facility] 3 01:15:34 Closed fracture of lateral malleolu s 98091357 Completed 202101/19/2022 Not Available [facility] 3 01:15:34 Closed fracture of lateral malleolu s 43775021 Completed 202110/13/2021 Not Available [facility] 3 01:15:34 Depressi ve disorder 25260411 Active Not Available [facility] 3 16:23:20 Sinusiti s 53819025 Completed Not Available [facility] 3 01:15:34 Migraine 17637036 Active Not Available [facility] 3 16:23:20 Superfic ial dehiscen ce of wound 79552957685 106 Completed 202111/06/2021 Not Available [facility] 3 01:15:35 Hypothyr oidism 69262298 Active Not Available [facility] 3 16:23:20 Obesity 104183300 Active Not Available [facility] 3 16:23:20 Pain of hip region 62138009 Completed Not Available [facility] 3 01:15:35 Upper respirat ory infectio n 84697738 Completed Not Available [facility] 3 01:15:36 Hyperlip idemia 79534569 Active 2017 Not Available [facility] 3 16:23:20 Wheezing 99003401 Completed 202101/19/2022 Not Available [facility] 3 01:15:36 Essentia l hyperten esmer 42200652 Active Not Available [facility] 3 16:23:20 Pruritic rash 17332636 Completed 202110/17/2021 Not Available [facility] 3 01:15:37 Urinary tract infectio us disease 45252042 Completed Not Available [facility] 3 01:15:37 Rheumato id arthriti s 59719714 Active Not Available [facility] 3 16:23:20 Rhinitis 26017426 Active Not Available [facility] 3 16:23:20 Smoker 30092438 Active Not Available [facility] 3 16:23:20 Primary fibromya lgia syndrome 47131488 Active Not Available [facility] 3 16:23:20 Vitamin D deficien cy 40750895 Active 2022 Not Available [facility] 3 16:23:19 Polyp of colon 08657495 Active 2022 Not Available [facility] 3 16:23:20 Divertic ulitis 159113674 Active 2022 Not Available [facility] 3 16:23:19 Obstruct pedro sleep apnea syndrome 78254762 Active 2022 Ekta Ibrahim MD [address], [address], [place], [address] , [employer] 4 16:05:07 Bipolar disorder 39923177 Active 2022 Ekta Ibrahim MD [address], [address], [place], [address] , [employer] [facility] 4 16:05:42 Marijuan a user 520419951 Active 2022 Ekta Ibrahim MD [address], [address], [place], [address] , [employer] 4 16:05:13 Gastroes ophageal reflux disease 526086415 Active 2022 Ekta Ibrahim MD [address], [address], [place], [address] , [employer] [facility] [employer] 3 11:48:27 Hypokale ubaldo 60715311 Active 2023 PERRY Wolfe null, [employer] [facility] 4 12:13:11 Sleep apnea 57704282 Active 2023 PERRY Wolfe null, [employer] [facility] 4 12:13:11 Severe chronic obstruct pedro pulmonar y disease 866116544 Active 2023 Rose Marie Healy MA null, [employer] [facility] [employer] [facility] 4 16:29:25 Overacti ve urinary bladder 912723926 Active 2023 Ekta Ibrahim MD [address], [address], [place], [address] , [facility] 4 16:10:29 Thromboc ytopenic disorder 426194444 Active 2023 Ekta Ibrahim MD [address], [address], [place], [address] , [place] [facility] 4 08:49:14 Urinary symptoms 735390742 Active 2023 PERRY Wolfe, [place] [facility] 4 16:49:40 Urinary symptoms 387079470 Active 2023 Ekta Ibrahim MD [address], [address], [place], [address] , [facility] 4 16:52:01 Hiatal hernia 18930258 Active 2023 Ekta Ibrahim MD [address], [address], [place], [address] , [facility] 4 10:40:20 Skin lesion 57073404 Active 2024 Ekta Ibrahim MD [address], [address], [place], [address] , [facility] 5 09:09:14 Tremor 83544051 Active 2024 ANN Castro [address], [address], [place], [address] , [facility] 5 11:07:53 Notes:Medical History: Bipol ar depression Migraine headaches Bilateral tinnitus Rhinitis Mild COPD Early REM onset Obesity with very severe OSAHS, AHI = 64, 07/02/22 Treatment -emergent central apneas Hypothyroidism Mixed hyperlipidemia Hypertension Diverticulosis/Diverticulitis Hemorrhoids PLMD RA on Enbrel and leflunomide Fibromyalgia Procedure History: T&A 1996 Cholecystectomy 2001 Left ankle surgeries 2002, 2004, 2021 Colonoscopy with polypectomy 2014 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 Procedures Surgical History Date Name Laterality Status Provider Name and Address Organization Details Recorded Time cholecystectomy completed Not Available [facility] 04/29/2022 01:01:31 Partial hysterectomy completed Not Available [facility] 04/29/2022 01:01:31 Tonsillectomy completed Not Available [facility] 04/29/2022 01:01:31 Genitourinary Surgery completed Not Available [facility] 04/29/2022 01:01:31 Orthopedic Surgery completed Not Available [facility] 04/29/2022 01:01:31 EPIC WILLOW SPECIALIST Procedure completed Not Available [facility] 04/29/2022 01:01:31 Imaging Results None recorded. Procedure Notes None recorded. Medical Equipment None Reported. Allergies Allergen ID Allergen Name Allergen Category Reaction Reaction Severity Criticality Documentation Date Start Date Code Code System Note Provider Name and Address Organization Details Recorded Time 2751 Wellbutri n medicatio n Not available Not available Not available 04/29/2022 82453 RxNorm Not Available [facility] 3 01:34:00 2752 Macrobid medicatio n rash Not available Not available 04/29/2022 23666 1 RxNorm Not Available [facility] 3 01:34:00 2753 latex environme nt,medica tion Not available Not available Not available 04/29/2022 30255 91 RxNorm Not Available [facility] 3 01:34:00 2754 Iodinated contrast media (substanc e) medicatio n rash Not available Not available 04/29/2022 79899 2004 SNOMED Not Available [facility] 3 01:34:00 Medications Name Sig Start Date [...] hours by oral route for 5 days. 02/27 completed Not Available Not Available Not Available [...] Silvadene 1 % topical cream APPLY A /16 INCH (1.5 MM) THICK LAYER TO ENTIRE [...] Updated DateTime 5 165.1 cm 39.3 kg/m2 339091. 8 g 97.3 [degF] 84 /min 24 /min 96 % 96 % 122 mm[Hg] 78 mm[Hg] Rose Marie Healy MA [place] [facility] 5 10:54:56 Social History Question Answer Notes LastModified by Organizat ion Details LastModified Time Tobacco Smoking Status Former [facility]oker Not Available [facility] 04/29/2022 00:56:49 Do You Have An Advance Directive? No MIGRATION.89316 [id number] Information not available 04/29/2022 What Is Your Level Of Caffeine Consumption? Occasional MIGRATION. 98296 Information not available 04/29/2022 How Much Tobacco Do You Chew? None MIGRATION.32206 29247 Information not available 04/29/2022 In The 14 Days Before Symptom Onset, Have You Had Close Contact With A Laboratory-confir med COVID-19 While That Case Was Ill? No MIGRATION.01420 83565 Information not available 04/29/2022 In The 14 Days Before Symptom Onset, Have You Had Close Contact With A Person Who Is Under Investigation For COVID-19 While That Person Was Ill? No MIGRATION.48632 48072 Information not available 04/29/2022 What Type Of Diet Are You Following? REGULAR MIGRATION.99671 48399 Information not available 04/29/2022 Which Illicit Or Recreational Drugs Have You Used? Marijuana Information not available 10/15/2022 Do You Have An Electrostatic Air Filter? No Information not available 10/15/2022 Have There Been Any Changes To Your Family Or Social Situation? No MIGRATION.76070 03340 Information not available 04/29/2022 What Is The Fluoride Status Of Your Home? Unknown MIGRATION.35651 45539 Information not available 04/29/2022 Do You Have A Humidifier? Yes Information not available 10/15/2022 Where Do You Live? [place] MIGRATION.45059 69688 Information not available 04/29/2022 Do You Have A Medical Power Of Key Punch Teacher? No MIGRATION.50071 00398 Information not available 04/29/2022 Do You Have Moisture Problems In Your Home? No Information not available 10/15/2022 What Was The Date Of Your Most Recent Tobacco Screening? 12/01/2022 Information not available 12/01/2022 Have You Ever Been Counseled For Unhealthy Alcohol Use? No MIGRATION.54908 64778 Information not available 04/29/2022 Do You Have Any Pets? Yes Information not available 10/15/2022 Do You Use Your Seat Belt Or Car Seat Routinely? Yes MIGRATION.46701 97535 Information not available 04/29/2022 Do You Have Smoke And Carbon Monoxide Detectors In Your Home? Yes MIGRATION.08175 90370 Information not available 04/29/2022 At What Age Did You Start Smoking Tobacco? 11 MIGRATION.13246 24904 Information not available 04/29/2022 Are You Passively Exposed To Smoke? No MIGRATION.48122 04317 Information not available 04/29/2022 Are There Any Smokers In Your House? No MIGRATION.69104 17832 Information not available 04/29/2022 Do You Use Sunscreen Routinely? Yes MIGRATION.54162 79422 Information not available 04/29/2022 Has Tobacco Cessation Counseling Been Provided? No MIGRATION.52432 34895 Information not available 04/29/2022 Have You Recently Traveled Abroad? No MIGRATION.85884 70427 Information not available 04/29/2022 Do You Have Any Dietary Restrictions? No MIGRATION.58019 17505 Information not available 04/29/2022 Sex: Unknown Functional Status Question Answer Note LastModified by Organizat ion Details LastModified Time Do you use any illicit or recreational drugs? No MIGRATION.821410 3896 Information not available 04/29/2022 Do you or have you ever used any other forms of tobacco or nicotine? No MIGRATION.361919 5572 Information not available 04/29/2022 What is your level of alcohol consumption? Occasional MIGRATION.586519 9067 Information not available 04/29/2022 Do you or have you ever used smokeless tobacco? Never used smokeless tobacco MIGRATION.975524 9662 Information not available 04/29/2022 What is your occupation? retired MIGRATION.038552 7540 Information not available 04/29/2022 Do you or have you ever used e-cigarettes or vape? Never used electronic cigarettes MIGRATION.143780 9949 Information not available 04/29/2022 What is your exercise level? Occasional MIGRATION.155152 1851 Information not available 04/29/2022 Mental Status None recorded. Family History Relationship Description Onset Age of this Age Resolved Age Notes LastModified by Organization Details LastModified Time Father Heart disease MIGRATION.298 [id number] Not available 04/29/2022 01:01:39 Father Essential hypertension [email or web address] Not available 15:12:02 Mother Diabetes mellitus MIGRATION.335 [id number] Not available 04/29/2022 01:01:39 Paternal Grandmother Heart disease MIGRATION.724 [id number] Not available 04/29/2022 01:01:39 Paternal Grandmother Malignant neoplastic disease [email or web address] Not available 05/17 15:12:02 Paternal Aunt Malignant neoplastic disease [email or web address] Not available 05/17 15:12:02 Mother Malignant neoplasm of skin [email or web address] Not available 2024 10:58:53 Medical History Condition Response CANCER: SPECIFY Y ARTHRITIS Y OSTEOPOROSIS Y OBESITY Y DEPRESSION (INCLUDING POST ) Y HYPERTENSION Y HIGH CHOLESTEROL / HYPERLIPIDEMIA Y Gynecological HistoryNo gynecological history recorded. Obstetrics History GPAL:G 0 P 0 0 0 0 Past Encounters Encounter ID Performer Location Encounter Start Date Encounter Closed Date Diagnosis/Indication Diagnosis SNOMED-CT Code Diagnosis ICD10 Code Diagnosis Note [id number] Ekta Ibrahim MD [facility] Internal [address] [place] [address] 08/02/2024 10:46:15 08/02/2024 11:34:35 Tremor 00449677 R25.1 Health Concerns Section Related Observation LastModified by Organization Detai ls LastModified Time None Recorded Concern Status LastModified by Organization Details LastModified Time None Recorded Payers Encounter Date Sequence Insurance Name Policy Number Policy Joyce Covered Member ID Joyce Member ID Guarantor Name 08/02/2024 1 [facility] [id number] Leeroy Junie Reji [id number] Izabella Junie Mendoza Notes Date Note Type Note Provider Name and Address Organization Details Recorded Time 08/02/2024 text/html Patient is 67y/o female who is [...] speaking or cognition Seeing RA- tomorrow- see ROSENDO [facility] [address] [facility], [facility] [address], [place], [address], [facility] 08/02/2024 11:27:07 OBGyn Episode No OBEpisode recorded.
--- OUTSIDE RECORDS SUMMARY | 2024-08-03 09:08 | XMS_ITS | Clinical Summary ---
Author Organization [facility] Address [address] [place] [address] Care Team Providers Care Museum Docent Name Role Phone Navin Ibrahim MD Primary Care Provider Cesar Dumont MD Unavailable [phone] Allergies Active Allergy Reactions Criticality Noted Date [...] footwear. Assessment & Plan (01/30/2019 12:16 PM BRIDGE CARPENTER): Patient notes pain in her right heel [...] future. Assessment & Plan (01/30/2019 12:17 PM BRIDGE CARPENTER): Notes right sided neck pain for the [...] at this time. Will continue to monitor. 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 Assessment & Plan (01/30/2019 12:15 PM BRIDGE CARPENTER): History of chronic recurrent UTIs, however unlikely [...] time. Assessment & Plan (04/11/2018 11:33 AM BRIDGE CARPENTER): Patient reports chronic recurrent UTIs despite multiple [...] defers at this time. Rheumatoid arthritis of [facility] with negative rheumatoid factor 09/24/2016 Overview [...] needed. Assessment & Plan (01/30/2019 12:15 PM BRIDGE CARPENTER): Moderate cdai. No obvious synovitis with multiple [...] needed. Assessment & Plan (04/11/2018 11:24 AM BRIDGE CARPENTER): High cdai. Multiple swollen and tender joints [...] needed. Assessment & Plan (03/10/2018 9:48 AM BRIDGE CARPENTER): She has been having increased pain and [...] months. Assessment & Plan (05/03/2017 12:31 PM BRIDGE CARPENTER): Has been off orencia and leflunomide >2 [...] months. Assessment & Plan (01/25/2017 10:29 AM BRIDGE CARPENTER): Still with synovitis over pip joints and [...] exercise. Assessment & Plan (01/30/2019 12:16 PM BRIDGE CARPENTER): Chronic pain in bilateral knees as well [...] exercise. Assessment & Plan (04/11/2018 11:28 AM BRIDGE CARPENTER): Chronic pain in bilateral knees as well [...] management. Assessment & Plan (03/10/2018 9:51 AM BRIDGE CARPENTER): She is having ongoing pain in the [...] exercising at a local gym with a job trainer in the near future. If her [...] stable. Assessment & Plan (05/03/2017 11:53 AM BRIDGE CARPENTER): Symptoms worse in spine and knees. Follows with pain management. Assessment & Plan (01/25/2017 10:26 AM BRIDGE CARPENTER): Symptoms worse in bilat knees and spine. [...] 03/01/2009 Overview (06/05/2016): MYALGIA AND MYOSITIS NOS Surgical History Surgery Date Site/Laterality Comments OTHER SURGICAL HISTORY L Ankle Fracture: Pin Removed CHOLECYSTECTOMY Cholecystectomy TONSILLECTOMY Tonsillectomy OTHER SURGICAL HISTORY Cancer, cervical: Hysterectomy Medical History Medical History Date Comments Hx Other Medical L Ankle Fractur e; Outcome: resolved Malignant neoplasm of cervix (HCC) Cancer, cervical Family History Medical History Relation Name Comments Other Father Pacemaker; Arthritis Mother arthritis; Diabetes Mother Diabetes mellit us; Car Accident Sister 2 MVA; Cause of D eath: MVA Lupus Sister 2 Lupus erythemat osus; Relation Name Status Comments Father Mother Sister 1 Alive Sister 2 Social History Tobacco Use Types Packs/Day Years Used Date Smoking Tobacco: Former Smokeless Tobacco: Never Comments:Smoking History Pac ks/day: 1.5 Packs Alcohol Use Standard Drinks/Week Comments Yes 0 (1 standard drink = 0.6 oz pur e alcohol) Comments Unknown Sex and Gender Information Value Date Recorded Sex Assigned at Not on file Legal Sex Female 8:08 AM BRIDGE CARPENTER Gender Identity Not on file Sexual Orientation Not on file Obstetrics History Last Filed Vital Signs Vital Sign Reading Time Taken Comments Blood Pressure 138/82 06/20/2019 1:39 PM CDT Pulse 78 01/30/2019 10:08 AM BRIDGE CARPENTER Temperature 36.6 C (97.8 F) 06/20/2019 1:39 PM CDT Respiratory Rate - - Oxygen Saturation - - Inhaled Oxygen Concentration - - Weight 103.9 kg (229 lb) 06/20/2019 1:39 PM CDT Height 165.1 cm (5' 5) 01/30/2019 10:08 AM BRIDGE CARPENTER Body Mass Index 38.11 01/30/2019 10:08 AM BRIDGE CARPENTER Plan of Treatment Not on file Insurance [employer] Care Teams Museum Docent Relationship Specialty Start Date End Date Navin Ibrahim MD PCP - General 05/29/16 Cesar Dumont MD [address] [address] Rheumatology 01/25/17
--- OUTSIDE RECORDS SUMMARY | 2024-08-03 09:08 | XMS_ITS | Patient Health Record ---
Author Organization [facility] Address [address] [place] [address] Care Team Providers Care Employee Development Specialist Name Role Phone Sondra Martínez Primary Care Provider [phone] Allergies Allergen (clinical drug ingredient) Drug/Non Drug Allergy documented on EMR Reaction Allergy Type Onset Date Status Wellbutrin Unknown Drug Allergy Active Reason For Referral No Information Medications Medication SIG (Take, Route, Fr equency, Duration) Notes Start Date End Date Status lamoTRIgine 100 MG TAKE 1 TABLET BY TAMICA TH TWICE A DAY FOR 30 DAYS for 90 days Acti ve PROzac 20 MG 1 capsule Orally Onc e a day for 90 days Active Vraylar 3 MG 1 capsule Orally Onc e a day for 90 days Active Enbrel 25 MG/0.5ML 1 mL Subcutaneous Active Social History Tobacco Use: Social History Observation Description Date Details (start date - stop date) Never Smoker NA - NA Sex Assigned At : Social History Observation Description Sex Assigned At Female Dont use, Tobacco Use/Smoking Question Answer Notes Are you a nonsmoker Tobacco Control (Standard) Question Answer Notes Tobacco use: Nonsmoker Problems Problem Type SNOMED Code ICD Code Onset Dates Problem Status W/U Status Risk Notes Problem [id number] Bipolar 2 disorder (F31.81) Active confirmed Plan Of Treatment No Information Insurance Providers Payer Name Payer Address Payer Phone Subscriber Number Group Number Insured Name Patient Relationship to Insured Coverage Start Date Coverage End Date [facility] [address] [place] [address] [id number] Izabella Mendoza Self - patient is the insured 1 Medical (General) History Medical History History ICD Code Rheumatoid arthritis fibromyalgia Surgical History Surgery Date(Month/Year) Left Ankle surgery 09/2021
[2024-08-03 09:44] LABS: Add Urine Microscopic? YES; Appearance Urine Clear (Clear); Bacteria Urine 1+ /hpf; Bilirubin Urine Negative (Negative); Blood Urine Negative (Negative); Color Urine Yellow (Yellow); Glucose Urine UA Negative (Negative); Ketones Urine Negative (Negative); Leukocyte Esterase Ur 2+ LEU/UL (Negative); Nitrate Urine Negative (Negative); Non Pathogenic Casts 0-2; Protein Urine Negative (Negative); RBC Urine 0-2 /hpf (0-2); Specific Grav Ur 1.016 (1.001-1.035); Squamous Epithelial Cell Urine Moderate /hpf (Few); Urobilinogen Urine 0.2 mg/dL (<2.0); WBC Urine 51-100 /hpf (0-3); pH Urine 6.5 (5.0-9.0)
== END 2024-08-03 08:49 | disposition home or self-care (01) ==
PROVIDERS: PCP Internal Medicine; Visit Provider Internal Medicine
DX: M06.9 Rheumatoid arthritis, unspecified (principal)
CPT/HCPCS: 36415; 81001

== ENCOUNTER 2024-08-04 09:13 | Outpatient (CLI) | payer OTHER, SELFPAY ==
--- OUTSIDE RECORDS SUMMARY | 2024-08-04 09:19 | XMS_ITS | Clinical Summary ---
Author Organization [facility] Address [address] [place] [address] Care Team Providers Care Roundhouse Supervisor Name Role Phone Navin Ibrahim MD Primary Care Provider [phone] Source Comments [facility],non-[facility] Affiliates and Associated Physician Practices is amultiple site organization consisting of ambulatory clinics and hospital sitesin [place], [place], [place] and [place]. This disclosure is being madepursuant to the Care Everywhere program and may not contain all information available regarding this patient. 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
--- OUTSIDE RECORDS SUMMARY | 2024-08-04 09:20 | XMS_ITS | CONTINUITY OF CARE DOCUMENT ---
Author Name [email or web address] Address Unknown Organization [facility] Address [address] [place] [address] Phone [phone] Care Team Providers Care Cake Froster Name Role Phone Stephanie Diaz MD Unavailable [phone] Navin Ibrahim MD Unavailable Navin Ibrahim MD Unavailable [phone] INSURANCE PROVIDERS Payer name Policy type / Coverage type Hall red republican ID [facility] [employer] insurance [employer] [id number]
--- OUTSIDE RECORDS SUMMARY | 2024-08-04 09:20 | XMS_ITS | Data Portability ---
Author Organization [facility], Main Office Address [address] [place] [address] Care Team Providers Care Control Director Name Role Phone EKTA NAVARRO Primary Care Provider EKTA NAVARRO Referring Provider [phone] Assessment No assessment recorded. Plan of Treatment Reminders Order Date Submit Date Provider Last Modified By Organization Details Last Modified Time Details Appointments Any 15 2024 01:30P M Ekta Navarro MD Not available Not available Not available Lab TSH, serum or plasma 2024 025 [email or web address] [employer] [facility], [address], [place], [address], 08/02/2024 14:08:29 urinalysi s, dipstick 2023 024 [email or web address] [facility] [address], [address] [place], [address], 02/07/2024 13:38:[address] referral - increasin g tremors- seeing psych to discuss meds as well. Please call patient to schedule an appointme nt. Thank you. 2024 025 [email or web address] [facility] [address] [place] [address] [place], [address], 08/03/2024 13:11:45 dermatolo gist referral - Please call patient to schedule. 2024 025 [email or web address] [facility], [address] [place] [address], [address], 05/22/2024 11:26:00 Procedures None recorded. Surgeries None recorded. Imaging None recorded. Medication Orders Cipro 250 mg tablet 2023 024 [email or web address] [id number], [address], [place], [address], 02/28/2024 13:57:32 amlodipin e 10 mg tablet 2023 024 JOIE [id number], [address], [place], [address], 02/03/2024 17:00:51 Patient TargetsNo targets recorded. Patient Instructions Encounter Date Encounter Id Patient Instructions Last Modified By Organization Details Last Modified Time 08/02/2024 [id number] Call Psych to discuss medications and likely side effects. Neurology consult sent at this time. [email or web address] Not available 08/02/2024 11:25:47 Discussed medications side effects vs. Neurological symptoms. will call with lab results. Please have RA send updated recent labs to our office. [email or web address] Not available 08/02/2024 11:26:30 Reason for Referral [employer] Referral for S kin lesion Please call patient to schedule. Referring Physician: Ekta Navarro, Internal Medicine, Encounter Date: 03/13/2024 Neurologist Referral for Benny mor increasing tremors- seeing psych to discuss meds as well. Please call patient to schedule an appointment. Thank you. Referring Physician: Mariama Mauricio, Internal Medicine, Encounter Date: 08/02/2024 Results Created Date Observation Date Name Description Value Unit Range Abnormal Flag Note LastModifiedBy Organization Detail LastModifiedTime 12/06/1912/06/2023 urina lysis , dipst ick Leukocytes (reference range: negative sonia/ l) Small Not Available [facility] [address] [place], [address], 12/06/2023 16:49:45 12/06/1912/06/2023 urina lysis , dipst ick Nitrite (reference rage: negative mg/dl) negati ve Not Available [facility] [address] [place], [address], 12/06/2023 16:49:45 12/06/19 24 12/06/2023 urina lysis , dipst ick Urobilinogen (reference range: 0.2-1 mg/dl) 0.2 Not Available [facility] [address] [place], [address], 12/06/2023 16:49:45 12/06/1912/06/2023 urina lysis , dipst ick Protein (reference range: negative mg/dl) Trace Not Available [facility] [address] [place], [address], 12/06/2023 16:49:45 12/06/1912/06/2023 urina lysis , dipst ick pH (reference range: 5-7) 5.5 Not Available [facility] [address] [place], [address], 12/06/2023 16:49:45 12/06/1912/06/2023 urina lysis , dipst ick Blood (reference range: negative Vic/ l) Small Not Available [facility] [address] [place], [address], 12/06/2023 16:49:45 12/06/1912/06/2023 urina lysis , dipst ick Specific [place] (reference range: 1.005-1.030) 1.015 Not Available [facility] [address] [place], [address], 12/06/2023 16:49:45 12/06/1912/06/2023 urina lysis , dipst ick Ketone (reference range: negative mg/dl) Negati ve Not Available [facility] [address] [place], [address], 12/06/2023 16:49:45 12/06/1912/06/2023 urina lysis , dipst ick Bilirubin (reference range: negative mg/dl) Negati ve Not Available [facility] [address] [place], [address], 12/06/2023 16:49:45 12/06/1912/06/2023 urina lysis , dipst ick Glucose (reference range: negative mg/dl) Negati ve Not Available [facility] [address] [place], [address], 12/06/2023 16:49:45 12/06/1912/06/2023 urina lysis , dipst ick Appearance Cloudy Not Available [facility] [address] [place], [address], 12/06/2023 16:49:45 12/06/1912/06/2023 urina lysis , dipst ick Color Pale Yellow Not Available [facility] [address] [place], [address], 12/06/2023 16:49:45 12/20/1912/20/2023 URINA LYSIS COMPL ETE/I RIS W/RFX color YELLOW Not Available [facility] ([facility]) [address] [facility], [place], [address], 12/20/2023 19:18:45 12/20/1912/20/2023 URINA LYSIS COMPL ETE/I RIS W/RFX appear EXTRA TURBID abnormal Not Available [facility] (Lab) [address] [place], [address], 12/20/2023 19:18:45 12/20/1912/20/2023 URINA LYSIS COMPL ETE/I RIS W/RFX specific gravity 1.021 1.001- 1.030 Not Available [facility] (Lab) [address] [place], [address], 12/20/2023 19:18:45 12/20/1912/20/2023 URINA LYSIS COMPL ETE/I RIS W/RFX pH 5.5 pH_un its 5.0-9. 0 Not Available [facility] (Lab) [address] [place], [address], 12/20/2023 19:18:45 12/20/1912/20/2023 URINA LYSIS COMPL ETE/I RIS W/RFX leukocytes >/=500 sonia/u L negati ve- abnormal Not Available [facility] (Lab) [address] [place], [address], 12/20/2023 19:18:45 12/20/1912/20/2023 URINA LYSIS COMPL ETE/I RIS W/RFX nitrite NEGATI VE negati ve- Not Available [facility] (Lab) [address] [place], [address], 12/20/2023 19:18:45 12/20/1912/20/2023 URINA LYSIS COMPL ETE/I RIS W/RFX protein 70 mg/dL negati ve- abnormal Not Available [facility] (Lab) [address] [place], [address], 12/20/2023 19:18:45 12/20/19 24 12/20/2023 URINA LYSIS COMPL ETE/I RIS W/RFX glucose NORMAL mg/dL normal - Not Available [facility] (Lab) [address] [place], [address], 12/20/2023 19:18:45 12/20/1912/20/2023 URINA LYSIS COMPL ETE/I RIS W/RFX ketones NEGATI VE mg/dL negati ve- Not Available [facility] (Lab) [address] [place], [address], 12/20/2023 19:18:45 12/20/1912/20/2023 URINA LYSIS COMPL ETE/I RIS W/RFX urobilinogen NORMAL mg/dL normal - Not Available [facility] (Lab) [address] [place], [address], 12/20/2023 19:18:45 12/20/1912/20/2023 URINA LYSIS COMPL ETE/I RIS W/RFX bilirubin NEGATI VE mg/dL negati ve- Not Available [facility] (Lab) [address] [place], [address], 12/20/2023 19:18:45 12/20/1912/20/2023 URINA LYSIS COMPL ETE/I RIS W/RFX blood 0.2 mg/dL negati ve- abnormal Not Available [facility] (Lab) [address] [place], [address], 12/20/2023 19:18:45 12/20/1912/20/2023 URINA LYSIS COMPL ETE/I RIS W/RFX white blood cells 61-100 /i??h pfi?? 0-8 abnormal Not Available [facility] (Lab) [address] [place], [address], 12/20/2023 19:18:45 12/20/19 24 12/20/2023 URINA LYSIS COMPL ETE/I RIS W/RFX red blood cells 11-20 /i??h pfi?? 0-4 abnormal Not Available [facility] (Lab) [address] [place], [address], 12/20/2023 19:18:45 12/20/1912/20/2023 URINA LYSIS COMPL ETE/I RIS W/RFX bacteria MODERA TE abnormal Not Available [facility] (Lab) [address] [place], [address], 12/20/2023 19:18:45 12/20/1912/20/2023 URINA LYSIS COMPL ETE/I RIS W/RFX mucous OCCASI ONAL /i??l pfi?? abnormal Not Available [facility] (Lab) [address] [place], [address], 12/20/2023 19:18:45 12/20/1912/20/2023 URINA LYSIS COMPL ETE/I RIS W/RFX squamous epithelial PACKED FIELD /i??l pfi?? abnormal Not Available [facility] (Lab) [address] [place], [address], 12/20/2023 19:18:45 12/20/1912/20/2023 URINA LYSIS COMPL ETE/I RIS W/RFX calcium oxalate crystal MODERA TE /i??h pfi?? none seen- abnormal Not Available [facility] (Lab) [address] [place], [address], 12/20/2023 19:18:45 12/20/1912/20/2023 URINA LYSIS COMPL ETE/I RIS W/RFX sperm PRESEN T /i??h pfi?? abnormal Not Available [facility] (Lab) [address] [place], [address], 12/20/2023 19:18:45 02/03/20 24 02/03/2024 urina lysis , dipst ick Leukocytes (reference range: negative sonia/ l) Large Not Available [facility] [address] [place], [address], 02/03/2024 16:50:06 02/03/20 24 02/03/2024 urina lysis , dipst ick Nitrite (reference rage: negative mg/dl) positi ve Not Available [facility] [address] [place], [address], 02/03/2024 16:50:06 02/03/20 24 02/03/2024 urina lysis , dipst ick Urobilinogen (reference range: 0.2-1 mg/dl) 0.2 Not Available [facility] [address] [place], [address], 02/03/2024 16:50:06 02/03/20 24 02/03/2024 urina lysis , dipst ick Protein (reference range: negative mg/dl) Modera te Not Available [facility] [address] [place], [address], 02/03/2024 16:50:06 02/03/20 24 02/03/2024 urina lysis , dipst ick pH (reference range: 5-7) 5.5 Not Available [facility] [address] [place], [address], 02/03/2024 16:50:06 02/03/20 24 02/03/2024 urina lysis , dipst ick Blood (reference range: negative Vic/ l) Modera te Not Available [facility] [address] [place], [address], 02/03/2024 16:50:06 02/03/20 24 02/03/2024 urina lysis , dipst ick Specific [place] (reference range: 1.005-1.030) 1.030 Not Available [facility] [address] [place], [address], 02/03/2024 16:50:06 02/03/20 24 02/03/2024 urina lysis , dipst ick Ketone (reference range: negative mg/dl) Negati ve Not Available [facility] [address] [place], [address], 02/03/2024 16:50:06 02/03/20 24 02/03/2024 urina lysis , dipst ick Bilirubin (reference range: negative mg/dl) Negati ve Not Available [facility] [address] [place], [address], 02/03/2024 16:50:06 02/03/20 24 02/03/2024 urina lysis , dipst ick Glucose (reference range: negative mg/dl) Negati ve Not Available [facility] [address] [place], [address], 02/03/2024 16:50:06 02/03/20 24 02/03/2024 urina lysis , dipst ick Appearance Cloudy Not Available [facility] [address] [place], [address], 02/03/2024 16:50:06 02/03/20 24 02/03/2024 urina lysis , dipst ick Color Dark Yellow Not Available [facility] [address] [place], [address], 02/03/2024 16:50:06 02/09/20 24 02/09/2024 CT, abdom en + pelvi s, w/o contr ast No observ ation record ed. BARCODE Not Available 2023 14:21:15 Result Notes None recorded. Problems Name Problem SNOMED Code Status Onset Date Resolution Date Notes Provider Name and Address Organization Details Recorded Time Injury of ankle 351664376 Completed 202110/13/2021 Not Available [facility] 3 01:15:32 Disorder of trunk 252172631 Completed Not Available [facility] 3 01:15:32 Postoper ative care Completed 202111/06/2021 Not Available [facility] 3 01:15:32 Postoper ative care Completed 202110/17/2021 Not Available [facility] 3 01:15:32 Chronic obstruct pedro pulmonar y disease 07357669 Active 2021 Not Available [facility] 3 16:23:19 Increase d frequenc y of urinatio n 487875510 Completed Not Available [facility] 3 01:15:32 Nausea and vomiting 30776308 Completed Not Available [facility] 3 01:15:33 Abdomina l pain 46063626 Completed Ekta Navarro MD [address] [place] [address], [address] , [facility] 3 10:17:19 Screenin g mammogra phy Completed 202110/13/2021 Not Available [facility] 3 01:15:33 Fibromyo sitis 82303838 Completed rheumato logy, on gabapent in Not Available [facility] 3 01:15:33 Ankle pain 227000671 Completed 202110/13/2021 Not Available [facility] 3 01:15:33 Persiste nt cough 219629171 Completed Not Available [facility] 3 01:15:34 Closed fracture of lateral malleolu s 49925507 Completed 202101/19/2022 Not Available [facility] 3 01:15:34 Closed fracture of lateral malleolu s 74969209 Completed 202110/13/2021 Not Available [facility] 3 01:15:34 Depressi ve disorder 75907707 Active Not Available [facility] 3 16:23:20 Sinusiti s 34609282 Completed Not Available [facility] 3 01:15:34 Migraine 81499132 Active Not Available [facility] 3 16:23:20 Superfic ial dehiscen ce of wound 73668728070 106 Completed 202111/06/2021 Not Available [facility] 3 01:15:35 Hypothyr oidism 48633416 Active Not Available [facility] 3 16:23:20 Obesity 836612867 Active Not Available [facility] 3 16:23:20 Pain of hip region 35509490 Completed Not Available [facility] 3 01:15:35 Upper respirat ory infectio n 13478967 Completed Not Available [facility] 3 01:15:36 Hyperlip idemia 41831528 Active 2017 Not Available [facility] 3 16:23:20 Wheezing 88914859 Completed 202101/19/2022 Not Available [facility] 3 01:15:36 Essentia l hyperten esmer 07411439 Active Not Available [facility] 3 16:23:20 Pruritic rash 74485909 Completed 202110/17/2021 Not Available [facility] 3 01:15:37 Urinary tract infectio us disease 25123186 Completed Not Available [facility] 3 01:15:37 Rheumato id arthriti s 91923490 Active Not Available [facility] 3 16:23:20 Rhinitis 80395255 Active Not Available [facility] 3 16:23:20 Smoker 41805029 Active Not Available [facility] 3 16:23:20 Primary fibromya lgia syndrome 37478504 Active Not Available [facility] 3 16:23:20 Vitamin D deficien cy 47210155 Active 2022 Not Available [facility] 3 16:23:19 Polyp of colon 55229318 Active 2022 Not Available [facility] 3 16:23:20 Divertic ulitis 831320364 Active 2022 Not Available [facility] 3 16:23:19 Obstruct pedro sleep apnea syndrome 91763989 Active 2022 Ekta Navarro MD [address], [place], [address] , [facility] 4 16:05:07 Bipolar disorder 50624277 Active 2022 Ekta Navarro MD [address], [place], [address] , [facility] 4 16:05:42 Marijuan a user 670421042 Active 2022 Ekta Navarro MD [address], [place], [address] , [facility] 4 16:05:13 Gastroes ophageal reflux disease 647466020 Active 2022 Ekta Navarro MD [address], [place], [address] , [facility] 3 11:48:27 Hypokale bualdo 67115711 Active 2023 PERRY Wolfe null, [place] [facility] 4 12:13:11 Sleep apnea 10602659 Active 2023 Eloise ho RMGigi null, [place] [facility] 4 12:13:11 Severe chronic obstruct pedro pulmonar y disease 868503903 Active 2023 Rose Marie Healy MA null, [place] [facility] 4 16:29:25 Overacti ve urinary bladder 981564992 Active 2023 Ekta Navarro MD [address], [place], [address] , [facility] [employer] [facility] 4 16:10:29 Thromboc ytopenic disorder 055489114 Active 2023 Ekta Navarro MD [address], [address], [place], [address] , [facility] [employer] [facility] 4 08:49:14 Urinary symptoms 732117958 Active 2023 PERRY Wolfe, [facility] 4 16:49:40 Urinary symptoms 554411676 Active 2023 Ekta Navarro MD [address], [place], [address] , [facility] [employer] [employer] [facility] 4 16:52:01 Hiatal hernia 57597654 Active 2023 Ekta Navarro MD [address], [address], [place], [address] , [facility] [employer] [employer] [facility] 4 10:40:20 Skin lesion 01057978 Active 2024 Ekta Navarro MD [address], [address], [place], [address] , [facility] [employer] [employer] [facility] 5 09:09:14 Tremor 17627052 Active 2024 ANN Castro [address], [place], [address] , [facility] [employer] [employer] [facility] 5 11:07:53 Notes:Medical History: Bipol ar depression Migraine headaches Bilateral tinnitus Rhinitis Mild COPD Early REM onset Obesity with very severe OSAHS, AHI = 64, 07/02/22 Treatment -emergent central apneas Hypothyroidism Mixed hyperlipidemia Hypertension Diverticulosis/Diverticulitis Hemorrhoids PLMD RA on Enbrel and leflunomide Fibromyalgia Procedure History: T&A 1997 Cholecystectomy 2001 Left ankle surgeries 2002, 2004, 2021 Colonoscopy with polypectomy 2014 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 Procedure Notes None recorded. Medical Equipment None Reported. Allergies Allergen ID Allergen Name Allergen Category Reaction Reaction Severity Criticality Documentation Date Start Date Code Code System Note Provider Name and Address Organization Details Recorded Time 2751 Wellbutri n medicatio n Not available Not available Not available 04/29/2022 60497 RxNorm Not Available [facility] 3 01:34:00 2752 Macrobid medicatio n rash Not available Not available 04/29/2022 06243 1 RxNorm Not Available [facility] 3 01:34:00 2753 latex environme nt,medica tion Not available Not available Not available 04/29/2022 00365 91 RxNorm Not Available [facility] 3 01:34:00 2754 Iodinated contrast media (substanc e) medicatio n rash Not available Not available 04/29/2022 18530 2004 SNOMED Not Available [facility] 3 01:34:00 Medications Name [...] Updated DateTime 5 165.1 cm 41.1 kg/m2 254978. 32 g 96.8 [degF] 82 /min 98 % 98 % 144 mm[Hg] 84 mm[Hg] PERRY Cheng [employer] 5 08:48:33 Date Recorded Body height Body mass index (BMI) Body weight Body temperature Heart rate Oxygen saturation Oxygen saturation in Arterial blood by Pulse oximetry Systolic blood pressure Diastolic blood pressure Provider Name and Address Organization Details Last Updated DateTime 5 165.1 cm 42.3 kg/m2 819791. 46 g 97.3 [degF] 83 /min 97 % 97 % 144 mm[Hg] 76 mm[Hg] Dara thomas [employer] 5 15:26:55 Date Recorded Body height Body mass index (BMI) Body weight Body temperature Heart rate Respiratory rate Oxygen saturation Oxygen saturation in Arterial blood by Pulse oximetry Systolic blood pressure Diastolic blood pressure Provider Name and Address Organization Details Last Updated DateTime 5 165.1 cm 39.3 kg/m2 680726. 8 g 97.3 [degF] 84 /min 24 /min 96 % 96 % 122 mm[Hg] 78 mm[Hg] Rose Marie Healy MA [employer] 5 10:54:56 Date Recorded Body height Body mass index (BMI) Body weight Body temperature Heart rate Oxygen saturation Oxygen saturation in Arterial blood by Pulse oximetry Systolic blood pressure Diastolic blood pressure Provider Name and Address Organization Details Last Updated DateTime 4 165.1 cm 41.6 kg/m2 722995. 09 g 96.8 [degF] 67 /min 98 % 98 % 160 mm[Hg] 90 mm[Hg] Eloise Winnie madeleine [facility] [employer] [facility] 4 10:29:06 Date Recorded Body height Body mass index (BMI) Body weight Body temperature Heart rate Oxygen saturation Oxygen saturation in Arterial blood by Pulse oximetry Systolic blood pressure Diastolic blood pressure Provider Name and Address Organization Details Last Updated DateTime 4 165.1 cm 40.8 kg/m2 901801. 13 g 98 [degF] 77 /min 96 % 96 % 182 mm[Hg] 94 mm[Hg] Eloise Winnie madeleine [facility] [employer] [facility] 4 16:37:37 Social History Question Answer Notes LastModified by WiseBanyanat ion Details LastModified Time Tobacco Smoking Status Former Smoker Not Available [facility] 04/29/2022 00:56:49 Do You Have An Advance Directive? No [id number] Information not available 04/29/2022 What Is Your Level Of Caffeine Consumption? Occasional [id number] Information not available 04/29/2022 How Much Tobacco Do You Chew? None [id number] Information not available 04/29/2022 In The 14 Days Before Symptom Onset, Have You Had Close Contact With A Laboratory-confir med COVID-19 While That Case Was Ill? No [id number] Information not available 04/29/2022 In The 14 Days Before Symptom Onset, Have You Had Close Contact With A Person Who Is Under Investigation For COVID-19 While That Person Was Ill? No [id number] Information not available 04/29/2022 What Type Of Diet Are You Following? REGULAR [id number] Information not available 04/29/2022 Which Illicit Or Recreational Drugs Have You Used? Marijuana Information not available 10/15/2022 Do You Have An Electrostatic Air Filter? No Information not available 10/15/2022 Have There Been Any Changes To Your Family Or Social Situation? No [id number] Information not available 04/29/2022 What Is The Fluoride Status Of Your Home? Unknown [id number] Information not available 04/29/2022 Do You Have A Humidifier? Yes Information not available 10/15/2022 Where Do You Live? SingleLevelHouse [id number] Information not available 04/29/2022 Do You Have A Medical Power Of Corrosion Prevention Metal Sprayer? No MIGRATION.72009 [id number] Information not available 04/29/2022 Do You Have Moisture Problems In Your Home? No Information not available 10/15/2022 What Was The Date Of Your Most Recent Tobacco Screening? 12/01/2022 Information not available 12/01/2022 Have You Ever Been Counseled For Unhealthy Alcohol Use? No MIGRATION.56279 53943 Information not available 04/29/2022 Do You Have Any Pets? Yes Information not available 10/15/2022 Do You Use Your Seat Belt Or Car Seat Routinely? Yes MIGRATION.13776 32334 Information not available 04/29/2022 Do You Have Smoke And Carbon Monoxide Detectors In Your Home? Yes MIGRATION.80137 31817 Information not available 04/29/2022 At What Age Did You Start Smoking Tobacco? 11 MIGRATION.76784 21194 Information not available 04/29/2022 Are You Passively Exposed To Smoke? No MIGRATION.81535 14590 Information not available 04/29/2022 Are There Any Smokers In Your House? No MIGRATION.40044 75443 Information not available 04/29/2022 Do You Use Sunscreen Routinely? Yes MIGRATION.38072 09690 Information not available 04/29/2022 Has Tobacco Cessation Counseling Been Provided? No MIGRATION.81376 03962 Information not available 04/29/2022 Have You Recently Traveled Abroad? No MIGRATION.42794 61794 Information not available 04/29/2022 Do You Have Any Dietary Restrictions? No MIGRATION.10364 77028 Information not available 04/29/2022 Sex: Unknown Functional Status Question Answer Note LastModified by Organizat ion Details LastModified Time Do you use any illicit or recreational drugs? No MIGRATION.606175 3753 Information not available 04/29/2022 Do you or have you ever used any other forms of tobacco or nicotine? No MIGRATION.745326 3513 Information not available 04/29/2022 What is your level of alcohol consumption? Occasional MIGRATION.242636 8583 Information not available 04/29/2022 Do you or have you ever used smokeless tobacco? Never used smokeless tobacco MIGRATION.526292 3664 Information not available 04/29/2022 What is your occupation? retired MIGRATION.655541 1253 Information not available 04/29/2022 Do you or have you ever used e-cigarettes or vape? Never used electronic cigarettes MIGRATION.769353 7146 Information not available 04/29/2022 What is your exercise level? Occasional MIGRATION.094400 9080 Information not available 04/29/2022 Mental Status None recorded. Family History Relationship Description Onset Age of this Age Resolved Age Notes LastModified by Organization Details LastModified Time Father Heart disease [id number].870 [id number] Not available 04/29/2022 01:01:39 Father Essential hypertension Not available 15:12:02 Mother Diabetes mellitus MIGRATION.484 [id number] Not available 04/29/2022 01:01:39 Paternal Grandmother Heart disease MIGRATION.685 [id number] Not available 04/29/2022 01:01:39 Paternal Grandmother Malignant neoplastic disease [id number] Not available 05/17 15:12:02 Paternal Aunt Malignant neoplastic disease [email or web address] Not available 05/17 15:12:02 Mother Malignant neoplasm [...] SNOMED-CT Code Diagnosis ICD10 Code Diagnosis Note [id number] MD NACHO Wells_[facility] Internal Med [address] [place] [address] 05/06/2020 00:00:00 05/06/2020 12:27:19 [id number] MD NACHO Wells_[facility] Internal Med [address] [place] [address] 10/21/2020 00:00:00 10/21/2020 15:38:34 [id number] Ekta Navarro MD [facility] Internal Med [facility] [address] [facility] [place] [address] 11/13/2020 00:00:00 11/13/2020 16:17:28 [id number] Ekta Navarro MD [facility] Internal Med [address] [facility] [place] [address] 04/15/2021 00:00:00 04/15/2021 15:51:21 [id number] MD NACHO Wells_[facility] Internal Med [address] [facility] [place] [address] 07/10/2021 00:00:00 07/10/2021 11:38:54 [id number] SHELLY Caraballo_[facility] Pod[facility] [place] [address] [place] [address] 07/14/2021 00:00:00 07/14/2021 11:34:00 [id number] MD NACHO Wells_[facility] Internal Med [address] [place] [address] 07/31/2021 00:00:00 07/31/2021 15:29:41 [id number] Raymon Moyer DPM Steven_[facility] [place] [address] [place] [address] 07/31/2021 00:00:00 07/31/2021 13:23:06 [id number] MD NACHO Wells_[facility] Internal Med [address] [place] [address] 08/18/2021 00:00:00 08/18/2021 16:10:21 [id number] Raymon Moyer DPM [facility] [place] [address] [place] [address] 08/21/2021 00:00:00 08/26/2021 12:17:26 [id number] Raymon Moyer DPM [facility] [place] [address] [place] [address] 09/18/2021 00:00:00 09/18/2021 17:01:27 [id number] Ekta Navarro MD [facility] Internal Med [address] [place] [address] 09/23/2021 00:00:00 09/23/2021 13:01:17 [id number] Raymon Moyer DPM [facility] [place] [address] [place] [address] 10/13/2021 00:00:00 10/13/2021 10:22:34 [id number] Raymon Moyer DPM [facility] [place] [address] [place] [address] 10/27/2021 00:00:00 10/27/2021 11:20:52 [id number] Raymon Moyer DPM [facility] Podiatry [address] [address] 11/04/2021 00:00:00 11/04/2021 13:23:41 [id number] Raymon Moyer DPM [facility] [place] [address] [place] [address] 11/24/2021 00:00:00 11/24/2021 12:33:40 [id number] MD NADYA WellsS_[facility] Internal Med [address] [address] 12/29/2021 00:00:00 12/29/2021 15:51:24 [id number] MD NADYA [facility] Internal Med [address] [address] 01/20/2022 00:00:00 01/20/2022 12:58:36 [id number] MD NADYA [facility] Internal Med [address] [address] 06/16/2022 09:57:35 06/16/2022 10:55:07 Fatigue 01952499 R53.83 Sleep alivia ana disturbance 46334247 G47.9 sleep score high, report in the chart, [id number] Ekta Navarro MD S_[facility] Internal Med [address] [facility] [place] [address] 08/13/2022 14:34:12 08/13/2022 15:20:17 Abdominal pain 46494129 R10.9 most likely diverticul itis, will treat, take dietary precaution s,call if not better, ER if pain gets worse [id number] Ekta Navarro MD S_[facility] Internal Med [facility] [address] [facility] [place] [address] 08/20/2022 10:11:52 08/20/2022 10:33:18 Diverticulitis 069455735 K57.92 pain has improved, finish abx, take imodium prn [id number] Ramakrishna Reagan MD S_[facility] Pulmonolo gy [place] [address] [place] [address] 15 [place] [address] 10/15/2022 15:23:14 10/16/2022 08:08:32 Obstructive sleep apnea syndrome 01774744 G47.33 G47.30 G47.36 G47.61 [id number] Ekta Navarro MD S_[facility] Internal Med [facility] [address] [facility] [place] [address] 11/04/2022 15:13:03 11/04/2022 15:53:31 Essential hypertension 01840823 I10 under control Depressive disorder 3548 9007 F32.A stable Bipolar disorder 3030575 4 F31.9 stable Hypothyroidism 32693849 E03.9 under control Migraine 70170957 G43.90 9 meds help Obesity 424266712 E66.9 advised to lose Rheumatoid arthritis 698 19917 M06.9 stable with meds Hypokalemia 54219764 E87 .6 stable Chronic ob structive pulmonary disease 24242718 J44.9 under control Vitamin D deficiency 347 96356 E55.9 on meds Marijuana user 611528328 F12.90 advised to stop Adult heal th examination 436809842 Z00.00 Colonoscop y- 06/11/2014 Mammogram- 02/19 Dexa- 03/2020 Paps not required, DANIEL w/o bso FLU- Does not get COVID- DOES NOT WANT Sleep apnea 89384300 G47 .30 to get titration [id number] Ramakrishna Reagan MD S_[facility] Pulmonolo gy [place] [address] [facility] 15 [place] [address] 12/01/2022 12:20:50 12/01/2022 14:02:14 Obstructive sleep apnea syndrome 82060304 G47.33 [id number] Ekta Navarro MD S_GM Internal [facility] [address] [place] [address]. [place] [address] 12/18/2022 11:05:50 12/18/2022 11:57:58 Gastroesophageal reflux disease 001455652 K21.9 could be causing vomiting [id number] Ekta Navarro MD S_[facility] Internal Med [facility] [address] [facility] [place] [address] 03/26/2023 11:50:07 03/26/2023 12:41:02 Essential hypertension 43683321 I10 under control Depressive disorder 3548 9007 F32.A under control Bipolar disorder 5109256 4 F31.9 stable Hypothyroidism 66833455 E03.9 under control Migraine 46318723 G43.90 9 meds help Obesity 202415716 E66.9 advised to lose Rheumatoid arthritis 698 22053 M06.9 stable with meds Hypokalemia 45730690 E87 .6 stable Chronic ob structive pulmonary disease 96341112 J44.9 under control Vitamin D deficiency 347 03471 E55.9 on meds Marijuana user 802034119 F12.90 advised to stop Adult heal th examination 559507009 Z00.00 Colonoscop y- 03/23, nl , next in 10yrs Mammogram- 02/19 Dexa- 03/2020 Paps not required, DANIEL w/o bso FLU- Does not get COVID- DOES NOT WANT Sleep apnea 22986599 G47 .30 can't afford Gastroesop hageal reflux disease 944440707 K21.9 on meds, still gets vomiting [id number] Ekta Navarro MD [facility] Internal Med [address] [place] [address] 04/08/2023 14:34:34 04/08/2023 14:52:26 Essential hypertension 82738663 I10 FOR NOW WATCH, SAME MEDS, RECHECK IN 3 WEEKSMEDS ADJUSTMENT IF NEEDEDBP WAS GOOD RECENTLY [id number] Ekta Navarro MD [facility] Internal Med [address] [place] [address] 05/14/2023 11:18:38 05/14/2023 11:52:17 Essential hypertension 45275770 I10 getting better, lose weight, watch salt Chronic ob structive pulmonary disease 53342738 J44.9 still with wheezing , try trelegy, sample for a week [id number] Ekta Navarro MD [facility] Internal Med [address] [place] [address] 08/19/2023 15:22:17 08/19/2023 16:19:44 Essential hypertension 02369156 I10 under control Depressive disorder 3548 9007 F32.A under control Bipolar disorder 4439842 4 F31.9 stable Hypothyroidism 02842900 E03.9 under control Migraine 04653481 G43.90 9 meds help Obesity 082771389 E66.9 advised to lose Rheumatoid arthritis 698 02946 M06.9 stable with meds Hypokalemia 76221959 E87 .6 stable Chronic ob structive pulmonary disease 88131975 J44.9 under control Vitamin D deficiency 347 74108 E55.9 on meds Marijuana user 952968235 F12.90 advised to stop Adult heal th examination 278420603 Z00.00 Colonoscop y- 03/23, nl , next in 10yrsMammo gram- 02/19Dexa- 1Pap s not required, DANIEL w/o bsoFLU- Does not getCOVID- DOES NOT WANT Sleep apnea 47456443 G47 .30 can't afford Gastroesop hageal reflux disease 221661586 K21.9 better Screening mammography 24 608096 Z12.31 Overactive urinary bladder 709603603 N32.81 try Myrbetriq 50 mg qd [id number] Ekta Navarro MD [facility] Internal Med [address] [place] [address] 12/06/2023 16:05:52 12/06/2023 16:54:32 Urinary symptoms 375597466 R39.9 dip stick noted, drink more water [id number] Ekta Navarro MD [facility] Internal Med [address] [place] [address] 12/20/2023 10:12:05 12/20/2023 10:47:17 Hiatal hernia 63287321 K44.9 vomiting is getting worse, to see GI , may need surgery Urinary symptoms 9172033 08 R39.9 dip stick noted, drink more water [id number] Ekta Navarro MD [facility] Internal [facility] [address] [place] [address] 01/04/2024 10:20:15 01/04/2024 10:46:38 Essential hypertension 79601332 I10 was always under control, watch for a month, monitor at home and recheck in a month Depressive disorder 3548 9007 F32.A under control Bipolar disorder 9230023 4 F31.9 stable with meds Hypothyroidism 61145500 E03.9 under control Migraine 93710439 G43.90 9 meds help Obesity 139929096 E66.9 advised to lose Rheumatoid arthritis 698 85517 M06.9 stable with meds Hypokalemia 25254563 E87 .6 stable Chronic ob structive pulmonary disease 00885074 J44.9 under control with meds Vitamin D deficiency 347 89044 E55.9 to take otc Marijuana user 514439260 F12.90 advised to stop Adult heal th examination 836387807 Z00.00 Colonoscop y- 03/23, nl , next in 10yrsEGD- 04/07/2023 Sleep Study- 11/26/2022 Mammogram- 09/20/2023 Dexa- 1Pap s not required, DANIEL w/o bsoFLU- Does not getCOVID- DOES NOT WANT Sleep apnea 71263827 G47 .30 can't afford Gastroesop hageal reflux disease 468068020 K21.9 better Overactive urinary bladder 886941961 N32.81 generic Myrbetriq helps [id number] Ekta Navarro MD [facility] Internal [facility] [address] [place] [address] 02/03/2024 16:31:35 02/03/2024 17:05:20 Essential hypertension 24220548 I10 add amlodipine Urinary symptoms 7655160 08 R39.9 dip stick noted, drink more water [id number] Ekta Navarro MD [facility] Internal [facility] [address] [place] [address] 03/13/2024 08:41:08 03/13/2024 09:12:59 Essential hypertension 11433448 I10 getting better with amlodipine Skin lesion 24211671 L98 .9 [id number] Ekta Navarro MD [facility] Internal [facility] [address] [place] [address] 05/17/2024 15:11:12 05/17/2024 15:56:30 Essential hypertension 42906212 I10 better Depressive disorder 3548 9007 F32.A under control Bipolar disorder 5853441 4 F31.9 stable with meds Hypothyroidism 30321538 E03.9 under control Migraine 49773272 G43.90 9 meds help Obesity 963035612 E66.9 advised to lose, watch diet Rheumatoid arthritis 698 74200 M06.9 stable with meds Hypokalemia 04376746 E87 .6 stable Chronic ob structive pulmonary disease 73454138 J44.9 under control with meds Vitamin D deficiency 347 97074 E55.9 to take otc Adult heal th examination 483046093 Z00.00 Colonoscop y- 03/23, nl , next in 10yrsEGD- 04/07/2023 Sleep Study- 11/26/2022 Mammogram- 09/20/2023 Dexa- ap s not required, DANIEL w/o bsoFLU- Does not getCOVID- DOES NOT WANT Sleep apnea 34168508 G47 .30 can't afford cpap Gastroesop hageal reflux disease 843228693 K21.9 better Overactive urinary bladder 158739456 N32.81 generic Myrbetriq helps [id number] Ekta Navarro MD S_[facility] Internal [facility] [address] [place] [address] 08/02/2024 10:46:15 08/02/2024 11:34:35 Tremor 32984896 R25.1 Health Concerns Section Related Observation LastModified by Organization Detai ls LastModified Time None Recorded Concern Status LastModified by Organization Details LastModified Time None Recorded Advance Directives Directive N: Payers Encounter Date Sequence Insurance Name Policy Number Policy Joyce Covered Member ID Joyce Member ID Guarantor Name 01/04/2024 1 [facility] [id number] Leeroy Mendoza [id number] Izabella Mendoza 02/03/2024 1 [facility] [id number] Leeroy Mendoza [id number] Izabella Mendoza 03/13/2024 1 [facility] [id number] Leeroy Mendoza [id number] Izabella Mendoza 05/17/2024 1 [facility] [id number] Leeroy Mendoza [id number] Izabella Mendoza 08/02/2024 1 [facility] [id number] Leeroy Mendoza [id number] Izabella Mendoza Notes Date Note Type Note Provider Name and Address Organization Details Recorded Time 4 text/html She is here today for her routine follow up PT IS FASTING ( [facility] ) Hypertension- High today 166/90, BP [...] taken meds Ekta Navarro MD [address], [place], [address], [employer] 01/04/2024 10:44:50 4 text/html Pt is here today for a blood pressure follow up. BP was high, taking meds, no headache or dizzinessno cp or sobToday her b/p is 192/ 108Her machine is 201/95Also C/o urinary issues. Strong Odor and really dark, mild burning Ekta Navarro MD [address], [place], [address], [employer] [facility] [employer] 02/03/2024 17:04:24 5 text/html Pt is here [...] the past. Ekta Navarro MD [address], [place], [address], [employer] [facility] [employer] 03/13/2024 09:10:26 5 text/html pt is here for f/u. She has recently found out she has skin cancer on the left mormon early Apr. On 04/28/24 (was cut off)and [...] 50 mg qd Ekta Navarro MD [address], [place], [address], [employer] 05/17/2024 15:55:07 5 text/html Patient is 67y/o [...] Seeing RA- tomorrow- see yasir-ANN Nicole [address], [place], [address], [employer] 08/02/2024 11:27:07 OBGyn Episode No OBEpisode recorded.
--- OUTSIDE RECORDS SUMMARY | 2024-08-04 09:20 | XMS_ITS | Clinical Summary ---
Author Organization [facility] Address [address] [place] [address] Care Team Providers Care Chronometer Assembler And Adjuster Name Role Phone Navin Ibrahim MD Primary Care Provider Cesar Dumont MD Unavailable [phone] Allergies Active Allergy Reactions Criticality Noted Date [...] footwear. Assessment & Plan (01/30/2019 12:16 PM ENERGY DERIVATIVES TRADER): Patient notes pain in her right heel [...] future. Assessment & Plan (01/30/2019 12:17 PM ENERGY DERIVATIVES TRADER): Notes right sided neck pain for the [...] at this time. Will continue to monitor. intermediate manager current use of therapeutic drug 2018 Overview [...] orencia Assessment & Plan (01/30/2019 12:16 PM ENERGY DERIVATIVES TRADER): Quantiferon negative: 07/2018 Hepatitis negative: 06/2015 CXR [...] recur. Assessment & Plan (01/30/2019 12:15 PM ENERGY DERIVATIVES TRADER): History of chronic recurrent UTIs, however unlikely [...] time. Assessment & Plan (04/11/2018 11:33 AM ENERGY DERIVATIVES TRADER): Patient reports chronic recurrent UTIs despite multiple [...] defers at this time. Rheumatoid arthritis of [facility] with negative rheumatoid factor [...] needed. Assessment & Plan (01/30/2019 12:15 PM ENERGY DERIVATIVES TRADER): Moderate cdai. No obvious synovitis with multiple [...] needed. Assessment & Plan (04/11/2018 11:24 AM ENERGY DERIVATIVES TRADER): High cdai. Multiple swollen and tender joints [...] needed. Assessment & Plan (03/10/2018 9:48 AM ENERGY DERIVATIVES TRADER): She has been having increased pain and [...] months. Assessment & Plan (05/03/2017 12:31 PM ENERGY DERIVATIVES TRADER): Has been off orencia and leflunomide >2 [...] months. Assessment & Plan (01/25/2017 10:29 AM ENERGY DERIVATIVES TRADER): Still with synovitis over pip joints and [...] exercise. Assessment & Plan (01/30/2019 12:16 PM ENERGY DERIVATIVES TRADER): Chronic pain in bilateral knees as well [...] exercise. Assessment & Plan (04/11/2018 11:28 AM ENERGY DERIVATIVES TRADER): Chronic pain in bilateral knees as well [...] management. Assessment & Plan (03/10/2018 9:51 AM ENERGY DERIVATIVES TRADER): She is having ongoing pain in the [...] exercising at a local gym with a guide dog trainer in the near future. If her [...] stable. Assessment & Plan (05/03/2017 11:53 AM ENERGY DERIVATIVES TRADER): Symptoms worse in spine and knees. Follows with pain management. Assessment & Plan (01/25/2017 10:26 AM ENERGY DERIVATIVES TRADER): Symptoms worse in bilat knees and spine. [...] on file Legal Sex Female 8:08 AM ENERGY DERIVATIVES TRADER Gender Identity Not on file Sexual Orientation Not on file Obstetrics History Last Filed Vital Signs Vital Sign Reading Time Taken Comments Blood Pressure 138/82 06/20/2019 1:39 PM CDT Pulse 78 01/30/2019 10:08 AM ENERGY DERIVATIVES TRADER Temperature 36.6 C (97.8 F) 06/20/2019 1:39 PM CDT Respiratory Rate - - Oxygen Saturation - - Inhaled Oxygen Concentration - - Weight 103.9 kg (229 lb) 06/20/2019 1:39 PM CDT Height 165.1 cm (5' 5) 01/30/2019 10:08 AM ENERGY DERIVATIVES TRADER Body Mass Index 38.11 01/30/2019 10:08 AM ENERGY DERIVATIVES TRADER Plan of Treatment Not on file Insurance CHOICE PLUS Care Teams Chronometer Assembler And Adjuster Relationship Specialty Start Date End Date Navin Ibrahim MD PCP - General 05/29/16 Cesar Dumont MD [address] [address] Rheumatology 01/25/17
--- OUTSIDE RECORDS SUMMARY | 2024-08-04 09:20 | XMS_ITS | Encounter Summary ---
Author Organization [facility] Address [address] [place] [address] Phone Care Team Providers Care Buyer Assistant Name Role Phone Navin Ibrahim MD Primary Care Provider [phone] Cesar Dumont MD Unavailable [phone] Encounter Details Date Type Department Care Team (Late st Contact Info) Description 07/05/2017 Orders Only [facility] ProviderKentrell MD [address] [phone] Social History Tobacco Use Types Packs/Day Years Used Date Smoking Tobacco: Former Smokeless Tobacco: Never Comments:Smoking History Pac ks/day: 1.5 Packs Alcohol Use Standard Drinks/Week Comments Yes 0 (1 standard drink = 0.6 oz pur e alcohol) Comments Unknown Sex and Gender Information Value Date Recorded Sex Assigned at Not on file Legal Sex Female 8:08 AM CULTURAL CENTRE MANAGER Gender Identity Not on file Sexual Orientation [...] documented as of this encounter Care Teams Buyer Assistant Relationship Specialty Start Date End Date Navin Ibrahim MD PCP - General 05/29/16 Cesar Dumont MD [address] [address] Rheumatology 01/25/17 documented as of this encounter
--- OUTSIDE RECORDS SUMMARY | 2024-08-04 09:20 | XMS_ITS | Patient Health Record ---
Author Organization [facility] Address [address] [place] [address] Care Team Providers Care Driller Brake Lining Name Role Phone Sondra Martínez Primary Care Provider Allergies Allergen (clinical drug ingredient) Drug/Non Drug [...] Problem Status W/U Status Risk Notes Problem [id number] Bipolar 2 disorder (F31.81) Active confirmed Plan Of Treatment No Information Insurance Providers Payer Name Payer Address Payer Phone Subscriber Number Group Number Insured Name Patient Relationship to Insured Coverage Start Date Coverage End Date [facility] [address] [place] [address] [id number] Izabella Mendoza Self - patient is the insured 1 Medical (General) History Medical History History ICD Code Rheumatoid arthritis fibromyalgia Surgical History Surgery Date(Month/Year) Left Ankle surgery 09/2021
--- OUTSIDE RECORDS SUMMARY | 2024-08-04 09:20 | XMS_ITS | Referral Summary ---
Author Organization [facility] Address [address] [place] [address] Care Team Providers Care Shipping Support Name Role Phone Navin Ibrahim MD Primary Care Provider Cesar Dumont MD Unavailable [phone] Allergies Active Allergy Reactions Criticality Noted Date [...] footwear. Assessment & Plan (01/30/2019 12:16 PM FINANCIAL INVESTIGATOR): Patient notes pain in her right heel [...] future. Assessment & Plan (01/30/2019 12:17 PM FINANCIAL INVESTIGATOR): Notes right sided neck pain for the [...] at this time. Will continue to monitor. 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 Assessment & Plan (01/30/2019 12:15 PM FINANCIAL INVESTIGATOR): History of chronic recurrent UTIs, however unlikely [...] time. Assessment & Plan (04/11/2018 11:33 AM FINANCIAL INVESTIGATOR): Patient reports chronic recurrent UTIs despite multiple [...] defers at this time. Rheumatoid arthritis of [facility] sites with negative rheumatoid factor [...] needed. Assessment & Plan (01/30/2019 12:15 PM FINANCIAL INVESTIGATOR): Moderate cdai. No obvious synovitis with multiple [...] needed. Assessment & Plan (04/11/2018 11:24 AM FINANCIAL INVESTIGATOR): High cdai. Multiple swollen and tender joints [...] needed. Assessment & Plan (03/10/2018 9:48 AM FINANCIAL INVESTIGATOR): She has been having increased pain and [...] months. Assessment & Plan (05/03/2017 12:31 PM FINANCIAL INVESTIGATOR): Has been off orencia and leflunomide >2 [...] months. Assessment & Plan (01/25/2017 10:29 AM FINANCIAL INVESTIGATOR): Still with synovitis over pip joints and [...] exercise. Assessment & Plan (01/30/2019 12:16 PM FINANCIAL INVESTIGATOR): Chronic pain in bilateral knees as well [...] exercise. Assessment & Plan (04/11/2018 11:28 AM FINANCIAL INVESTIGATOR): Chronic pain in bilateral knees as well [...] management. Assessment & Plan (03/10/2018 9:51 AM FINANCIAL INVESTIGATOR): She is having ongoing pain in the [...] exercising at a local gym with a dog handler or trainer in the near future. If her [...] stable. Assessment & Plan (05/03/2017 11:53 AM FINANCIAL INVESTIGATOR): Symptoms worse in spine and knees. Follows with pain management. Assessment & Plan (01/25/2017 10:26 AM FINANCIAL INVESTIGATOR): Symptoms worse in bilat knees and spine. [...] on file Legal Sex Female 8:08 AM FINANCIAL INVESTIGATOR Gender Identity Not on file Sexual Orientation Not on file Last Filed Vital Signs Vital Sign Reading Time Taken Comments Blood Pressure 138/82 06/20/2019 1:39 PM CDT Pulse 78 01/30/2019 10:08 AM FINANCIAL INVESTIGATOR Temperature 36.6 C (97.8 F) 06/20/2019 1:39 PM CDT Respiratory Rate - - Oxygen Saturation - - Inhaled Oxygen Concentration - - Weight 103.9 kg (229 lb) 06/20/2019 1:39 PM CDT Height 165.1 cm (5' 5) 01/30/2019 10:08 AM FINANCIAL INVESTIGATOR Body Mass Index 38.11 01/30/2019 10:08 AM FINANCIAL INVESTIGATOR Plan of Treatment Not on file Insurance CHOICE PLUS [facility] HMO/PPO Address: [place] [address] Care Teams Shipping Support Relationship Specialty Start Date End Date Navin Ibrahim MD PCP - General 05/29/16 Cesar Dumont MD [address] [address] Rheumatology 01/25/17
--- OUTSIDE RECORDS SUMMARY | 2024-08-04 09:20 | XMS_ITS | Continuity of Care Document ---
Author Organization [facility] Address [address] [place] [address] [place] [address] Phone Care Team Providers Care Dewatering Filtering Supervisor Name Role Phone Marko Rosen Unavailable Unavailable Procedures Procedure Date Visual Field Examination(s) Eye Exam, New Patient Refraction Advance Directives Directive Yes / No Effective Date File Name No Information Encounters Encounter Description Practice Location Reason(s) For Visit Diagnoses Date Provider Providers Copied on Encounter [facility], [address] [place] [address] [address], [place], [place], [id number], tel:[phone] [facility] No Information Andi-0 3-201 0 Silas Lovehil. [address] [place] [address], [facility], [place]. tel:[phone] Referring Provider: Marko west, [address] [place] [address], [facility]. tel:[phone] [facility], [address] [place] [address] [address], [place], [place], [id number], tel:[phone] [facility] No Information Andi-0 1-201 0 Silas Marko. [address] [place] [address], [facility], [place]. tel:[phone] Referring Provider: Eugenio Moody, [facility] [address], [place], [place], [facility]. tel:[phone] Family History Family Member Type Diagnosis Age At Onset No Information Payers Payer name Insurance type Covered alliance party ID Mirna preciado(s) [facility] CI [id number] Social History Type Description Quantity Date Captured [...]
--- OUTSIDE RECORDS SUMMARY | 2024-08-04 09:20 | XMS_ITS | Encounter Summary ---
Author Organization [facility] Address [address] [place] [address] Phone Care Team Providers Care Production Operations Inspector Name Role Phone Navin Ibrahim MD Primary Care Provider [phone] Cesar Dumont MD Unavailable [phone] Encounter Details Date Type Department Care Team (Late st Contact Info) Description 05/20/2017 Orders Only [facility] ProviderKentrell MD [address] [id number] Social History Tobacco Use Types Packs/Day Years Used Date Smoking Tobacco: Former Smokeless Tobacco: Never Comments:Smoking History Pac ks/day: 1.5 Packs Alcohol Use Standard Drinks/Week Comments Yes 0 (1 standard drink = 0.6 oz pur e alcohol) Comments Unknown Sex and Gender Information Value Date Recorded Sex Assigned at Not on file Legal Sex Female 8:08 AM CIRCUIT TESTER Gender Identity Not on file Sexual Orientation [...] documented as of this encounter Care Teams Production Operations Inspector Relationship Specialty Start Date End Date Navin Ibrahim MD PCP - General 05/29/16 Cesar Dumont MD [address] [address] Rheumatology 01/25/17 documented as of this encounter
[2024-08-04 09:46] LABS: Basophils Absolute Auto 0.1 K/mm3 (0.0-0.1); Basophils Percent Auto 0.9 % (0.2-1.2); Eosinophils Absolute Auto 0.1 K/mm3 (0-0.3); Eosinophils Percent Auto 2.4 % (0-4.4); Hematocrit 41.2 % (37.0-47.0); Hemoglobin 13.1 g/dL (12.0-15.0); Immature Granulocyte Absolute 0.02 K/mm3 (0.00-0.031); Immature Granulocyte Percent A 0.4 % (0-0.5); Lymphocytes Percent Auto 38.3 % (18.3-44.2); Mean Corpuscular HGB Conc 31.8 g/dl (32-36); Mean Corpuscular Hemoglobin 29.2 pg (26-34); Mean Platelet Volume 11.1 fl (7.4-10.4); Monocytes Absolute Auto 0.5 K/mm3 (0.1-0.6); Monocytes Percent Auto 9.7 % (2.6-8.5); Neutrophils Absolute Auto 2.7 K/mm3 (1.3-6.7); Neutrophils Percent Auto 48.3 % (45.5-73.1); Platelet Count Result 145 k/mm3 (150-375); Red Blood Count 4.48 M/mm3 (4.2-5.4); Red Cell Distribution Width 13.2 % (11.5-14.5); White Blood Count 5.5 K/mm3 (4.5-10.0)
[2024-08-04 10:15] LABS: Alanine Aminotransferase 24 U/L (6-35); Albumin Level 3.9 g/dL (3.5-5.1); Alkaline Phosphatase 83 U/L (38-126); Anion Gap 4 mmol/L (4-12); Aspartate Amino Transferase 30 U/L (14-36); Bilirubin Direct 0.1 mg/dL (0-0.3); Bilirubin Indirect 0.6 mg/dL (0-1.1); Bilirubin,Total 0.7 mg/dL (0.2-1.3); CRP < 0.5 mg/dL (<1.0); Calcium 9.3 mg/dL (8.4-10.2); Carbon Dioxide 33 mmol/L (22-30); Chloride 104 mmol/L (98-107); Glucose 112 mg/dL (65-110); Potassium 3.4 mmol/L (3.4-5.0); Sodium 141 mmol/L (137-145); Total Protein 6.9 g/dL (6.3-8.2)
[2024-08-04 10:17] LABS: Blood Urea Nitrogen 18 mg/dL (7-17); Estimated Glomerular Filt Rate > 60
[2024-08-04 10:26] LABS: Erythrocyte Sedimentation Rate 21 mm/hr (0-20)
== END 2024-08-04 09:14 | disposition home or self-care (01) ==
PROVIDERS: PCP Internal Medicine; Visit Provider Internal Medicine
DX: M06.9 Rheumatoid arthritis, unspecified (principal)
CPT/HCPCS: 36415; 80053; 82248; 85025; 85652; 86140

== ENCOUNTER 2024-10-21 11:35 | Outpatient (CLI) | payer OTHER, SELFPAY ==
[2024-10-21 12:13] LABS: Hematocrit 44.1 % (37.0-47.0); Hemoglobin 13.9 g/dL (12.0-15.0); Immature Granulocyte Percent A 0.2 % (0-0.5); Lymphocytes Absolute Auto 1.71 K/mm3 (0.9-3.2); Mean Corpuscular HGB Conc 31.5 g/dl (32-36); Mean Corpuscular Hemoglobin 28.4 pg (26-34); Mean Corpuscular Volume 90.0 fl (80-100); Nucleated Red Blood Cells Absolute Auto 0.000 K/mm3 (0.0-0.012); Nucleated Red Blood Cells Perc 0.0 % (0.0-0.2); Platelet Count Result 154 k/mm3 (150-375); Red Blood Count 4.90 M/mm3 (4.2-5.4); White Blood Count 4.6 K/mm3 (4.5-10.0)
[2024-10-21 12:32] LABS: Add Urine Microscopic? YES; Appearance Urine Turbid (Clear); Glucose Urine UA Negative (Negative); Leukocyte Esterase Ur 2+ LEU/UL (Negative); Need Manual Microscopic Reviewed; Nitrate Urine Negative (Negative); Specific Grav Ur 1.026 (1.001-1.035)
[2024-10-21 12:33] LABS: Alanine Aminotransferase 26 U/L (6-35); Albumin Level 4.1 g/dL (3.5-5.1); Alkaline Phosphatase 92 U/L (38-126); Anion Gap 5 mmol/L (4-12); Aspartate Amino Transferase 30 U/L (14-36); Bilirubin,Total 0.8 mg/dL (0.2-1.3); Blood Urea Nitrogen 21 mg/dL (7-17); CRP < 0.5 mg/dL (<1.0); Calcium 9.2 mg/dL (8.4-10.2); Carbon Dioxide 29 mmol/L (22-30); Chloride 103 mmol/L (98-107); Estimated Glomerular Filt Rate > 60; Glucose 99 mg/dL (65-110); Potassium 3.6 mmol/L (3.4-5.0); Sodium 137 mmol/L (137-145); Total Protein 7.0 g/dL (6.3-8.2)
== END 2024-10-21 11:36 | disposition home or self-care (01) ==
PROVIDERS: PCP Internal Medicine; Visit Provider Internal Medicine
DX: M06.09 Rheumatoid arthritis without rheumatoid factor, multiple sites (principal)
CPT/HCPCS: 36415; 80053; 81001; 84100; 85025; 85652; 86140